=== PATIENT | female | born 1975 | race Caucasian/White ===

== ENCOUNTER 2016-07-22 12:01 | Emergency (ER) | payer OTHER ==
[2016-07-22 12:29] VITALS: BP 117/75; PULSE 61; TEMP 98.3; BMI 25.9
[2016-07-22] MEDS ORDERED: KETOROLAC TROMETHAMINE 30 MG/1 ML VIAL IM ONE (14:07)
[2016-07-22] MEDS ORDERED: CYCLOBENZAPRINE HCL 10 MG TABLET (FP) PO ONE (14:07)
--- NOTE | 2016-07-22 14:08 | PDOC ---
History of Present Illness - General Chief Complaint: Back Pain Stated Complaint: BACK PAIN, LT KNEE PAIN Time Seen by Provider: 07/22/16 13:56 History Source: Patient Exam Limitations: No Limitations - History of Present Illness Initial Comments: 07/22/16 14:07 CHIEF COMPLAINT: Fall HISTORY OF PRESENT ILLNESS: This is an otherwise healthy 41 year old female who presents for evaluation of left knee pain and right neck/shoulder pain following a fall down 5 steps while at work 5 days ago. She fell forward onto her hands and knees. Since then she has been able to bear weight and to ambulate , but she has persistent pain. She has been taking Motrin with partial relief. Vital signs on arrival are unremarkable. REVIEW OF SYSTEMS: GENERAL/CONSTITUTIONAL: No fever or chills. No weakness. No weight change. HEAD, EYES, EARS, NOSE AND THROAT: No change in vision. No ear pain or discharge. No sore throat. CARDIOVASCULAR: No chest pain or palpitations. RESPIRATORY: No cough, wheezing, or shortness of breath. GASTROINTESTINAL: No nausea, vomiting, diarrhea or constipation. GENITOURINARY: No dysuria, frequency, or change in urination. MUSCULOSKELETAL: Pain at right side of neck radiating to right shoulder. Pain in palms of both hands. Left knee pain. SKIN: No rash or easy bruising. NEUROLOGIC: No headache, vertigo, loss of consciousness, or loss of sensation. HEMATOLOGIC/LYMPHATIC: No anemia, easy bleeding, or history of blood clots. ALLERGIC/IMMUNOLOGIC: No hives or skin allergy. No latex allergy. PHYSICAL EXAM: GENERAL: The patient is awake, alert, and fully oriented, in no acute distress. HEAD: Normal with no signs of trauma. ENT: Pupils equal, round and reactive to light, extraocular movements intact, sclera anicteric, conjunctiva clear. Neck supple. LUNGS: Clear to auscultation bilaterally. Normal excursion. No respiratory distress or use of accessory muscles. CV: RRR, S1/S2, no MRG. Cap refill < 2 sec. ABDOMEN: Soft, non-distended, non-tender. EXTREMITIES: Normal range of motion of wrists, elbows, and shoulders bilaterally. Pain on extension of left knee; able to flex to 90 degrees. No ligament laxity. NEUROLOGICAL: Normal speech, normal gait. CN II-XII grossly intact. No midline cervical vertebral tenderness. PSYCH: Normal mood, normal affect. SKIN: Warm, dry, normal turgor, no rashes or lesions noted. Past History - Past Medical History Allergies/Adverse Reactions: Allergies Allergy/AdvReac Type Severity Reaction Status Date / Time Penicillins Allergy Itching Verified 07/22/16 12:26 Home Medications: Ambulatory Orders Omeprazole [Prilosec] 20 mg PO DAILY 09/09/13 Ferrous Sulfate [Feosol] 325 mg PO BID #60 ud 09/13/13 Levofloxacin [Levaquin -] 500 mg PO DAILY@0600 #5 tablet 09/13/13 Cyclobenzaprine HCl [Flexeril 10 mg] 10 mg PO HS PRN #10 tablet 07/22/16 Naproxen [Naprosyn -] 500 mg PO BID #14 tablet 07/22/16 Anemia: No Asthma: No Cancer: No Cardiac Disorders: No CVA: No COPD: No CHF: No Dementia: No Diabetes: No GI Disorders: No Disorders: No HTN: No Hypercholesterolemia: No Liver Disease: No Seizures: No Thyroid Disease: No Other medical history: DENIES. - Psycho/Social/Smoking Cessation Hx Anxiety: No Suicidal Ideation: No Smoking History: Never smoked Have you smoked in the past 12 months: No Hx Alcohol Use: No Drug/Substance Use Hx: No Substance Use Type: None Hx Substance Use Treatment: No *Physical Exam - Vital Signs Last Vital Signs Temp Pulse Resp BP Pulse Ox 98.3 F 61 19 117/75 97 07/22/16 12:26 07/22/16 12:26 07/22/16 12:26 07/22/16 12:26 07/22/16 12:26 ED Treatment Course - RADIOLOGY Radiology Studies Ordered: Category Date Time Status KNEE 3 POS-LEFT [RAD] Stat Radiology 07/22/16 14:07 Ordered Medical Decision Making - Medical Decision Making 07/22/16 15:32 A/P: 41 year old female with multiple injuries following a fall 5 days ago. 1. Toradol and Flexeril given with good relief of pain 2. Knee xray: no acute pathology 3. Followup instructions and return precautions reviewed *DC/Admit/Observation/Transfer Diagnosis at time of Disposition: Neck pain Fall Qualifiers: Encounter type: initial encounter Qualified Code(s): W19.XXXA - Unspecified fall, initial encounter Knee pain, left Qualifiers: Chronicity: acute Qualified Code(s): M25.562 - Pain in left knee - Discharge Dispostion Admit: No - Prescriptions Prescriptions: Cyclobenzaprine HCl [Flexeril 10 mg] 10 mg PO HS PRN #10 tablet PRN Reason: Pain Naproxen [Naprosyn -] 500 mg PO BID #14 tablet - Referrals Referrals: Casandra Retana MD [Primary Care Provider] - Call tomorrow - Patient Instructions Printed Discharge Instructions: DI for Neck Pain, DI for Knee Pain Additional Instructions: -You were seen today for neck/shoulder pain and knee pain following a fall. -Your knee xray is normal. -Please wrap the knee using the TARA wrap provided and rest with your leg elevated. -Take Naproxen and Flexeril as prescribed for pain and apply ice to the injured areas. -Return here for any new or concerning symptoms - Post Discharge Activity Work/School Note: Back to Work
[2016-07-22] MEDS ORDERED: KETOROLAC TROMETHAMINE 30 MG/1 ML VIAL ONE (14:10)
[2016-07-22] MEDS ORDERED: CYCLOBENZAPRINE HCL 10 MG TABLET (FP) ONE (14:10)
== END 2016-07-22 15:21 | disposition home or self-care (01) ==
LOC: JERFT 12:01
PROC: 3E0233Z Introduction of Anti-inflammatory into Muscle, Percutaneous Approach (ICD-10-PCS; principal; 2016-07-22)
DX: M54.2 Cervicalgia (principal); W10.8XXA Fall (on) (from) other stairs and steps, initial encounter; Y93.89 Activity, other specified; Y92.69 Other specified industrial and construction area as the place of occurrence of the external cause; Y99.0 Civilian activity done for income or pay
CPT/HCPCS: 73562-TC-LT; 99281-25

== ENCOUNTER 2018-03-13 12:33 | Emergency (ER) | payer OTHER ==
[2018-03-13 12:56] VITALS: BP 120/77; PULSE 97; TEMP 99.3; BMI 27.8
[2018-03-13] MEDS ORDERED: ACETAMINOPHEN 325 MG TABLET (FP) PO ONE (13:48)
[2018-03-13] MEDS ORDERED: ACETAMINOPHEN 325 MG TABLET (FP) ONE (13:51)
--- NOTE | 2018-03-13 14:07 | PDOC ---
History of Present Illness - General Chief Complaint: Cold Symptoms Stated Complaint: COUGH,FEVER Time Seen by Provider: 03/13/18 13:38 History Source: Patient Exam Limitations: No Limitations - History of Present Illness Initial Comments: 03/13/18 13:59 43 yr female with cough sore throat for 7 days pt just finished a 5 day Zpack for URI given by her PMD. Pt states she still has cough and sore throat took tylenol last night. no fever no vomiting or SOB non smoker. two signs with same symptoms Past History - Past Medical History Allergies/Adverse Reactions: Allergies Allergy/AdvReac Type Severity Reaction Status Date / Time Penicillins Allergy Itching Verified 03/13/18 12:52 Home Medications: Ambulatory Orders Clindamycin [Cleocin -] 300 mg PO TID #30 capsule 03/13/18 Anemia: No Asthma: No Cancer: No Cardiac Disorders: No CVA: No COPD: No CHF: No Dementia: No Diabetes: No GI Disorders: No Disorders: No HTN: No Hypercholesterolemia: No Liver Disease: No Seizures: No Thyroid Disease: No - Suicide/Smoking/Psychosocial Hx Smoking History: Never smoked Have you smoked in the past 12 months: No Information on smoking cessation initiated: No Hx Alcohol Use: No Drug/Substance Use Hx: No Substance Use Type: None Hx Substance Use Treatment: No Respiratory Specific PMHX - Complaint Specific PMHX Angina: No Bronchitis: Yes Pneumonia: No Pulmonary Embolus: No TB (Tuberculosis): No Review of Systems - Review of Systems Able to Perform ROS?: Yes Is the patient limited Slovak proficient: No Constitutional: No: Symptoms Reported HEENTM: Yes: Symptoms Reported, Throat Pain Respiratory: Yes: Cough *Physical Exam - Vital Signs Last Vital Signs Temp Pulse Resp BP Pulse Ox 99.3 F 97 H 16 120/77 100 03/13/18 12:35 03/13/18 12:35 03/13/18 12:35 03/13/18 12:35 03/13/18 12:35 - Physical Exam General Appearance: Yes: Nourished, Appropriately Dressed HEENT: positive: EOMI, GLENNA, TMs Normal, Pharyngeal Erythema. negative: Tonsillar Exudate, Tonsillar Erythema Neck: positive: Supple. negative: Lymphadenopathy (R), Lymphadenopathy (L) Respiratory/Chest: positive: Lungs Clear. negative: Rhonchi (dry cough noted ) , Wheezing Cardiovascular: positive: Regular Rhythm, Regular Rate Gastrointestinal/Abdominal: positive: Normal Bowel Sounds, Soft Musculoskeletal: positive: Normal Inspection Extremity: positive: Normal Capillary Refill, Normal Inspection, Normal Range of Motion Integumentary: positive: Normal Color, Dry, Warm Neurologic: positive: Fully Oriented, Alert, Normal Mood/Affect, Normal Response , Motor Strength 5/5 Medical Decision Making - Medical Decision Making 03/13/18 14:01 cc: cough sore throat no fever sons with same symptoms will check for strep most likely viral will continue supportive care at home. *DC/Admit/Observation/Transfer Diagnosis at time of Disposition: Strep pharyngitis - Discharge Dispostion Disposition: HOME Condition at time of disposition: Good - Prescriptions Prescriptions: Clindamycin [Cleocin -] 300 mg PO TID #30 capsule - Referrals Referrals: Casandra Retana MD [Primary Care Provider] - - Patient Instructions Printed Discharge Instructions: DI for Strep Throat Additional Instructions: tea with honey and lemon drink at least 2 liters of water a day apply Vicks Vapor rub to chest at bedtime and throat cool mist humidifer in the bedroom take Mucinex as directed (over the counter) - Post Discharge Activity
== END 2018-03-13 14:44 | disposition home or self-care (01) ==
LOC: JERFT 12:33
DX: J02.0 Streptococcal pharyngitis (principal); B95.5 Unspecified streptococcus as the cause of diseases classified elsewhere
CPT/HCPCS: 99281-25

== ENCOUNTER 2018-05-05 08:39 | Emergency (ER) | payer OTHER ==
[2018-05-05 08:45] VITALS: TEMP 98.6; BMI 25.6
--- NOTE | 2018-05-05 09:24 | PDOC ---
History of Present Illness - General Chief Complaint: Headache Stated Complaint: HEADACHE Time Seen by Provider: 05/05/18 08:59 History Source: Patient Exam Limitations: No Limitations - History of Present Illness Initial Comments: 05/05/18 09:23 CHIEF COMPLAINT: Headache, chest pain HISTORY OF PRESENT ILLNESS: This is an otherwise healthy 43-year-old female who presents for evaluation of headache and chest pain. The patient reports that she developed generalized headache yesterday at around 11 AM. This was initially relieved with ibuprofen, but returned at 4 PM and has not been responsive to ibuprofen since. She reports that the pain radiates down the left side of her neck. Today, she also developed chest pain/pressure, worse with deep breathing, and shortness of breath. She feels that her left arm is weak. She denies numbness, change in speech, blurred vision, and difficulty walking. She has never had similar symptoms. The patient does report that she is under increased stress and thinks that symptoms may be secondary to this. Vital signs on arrival are unremarkable. Travel: [place] 1 month ago Smoking: None Alcohol: None Drugs: None PCP: Dr. Casandra Retana REVIEW OF SYSTEMS: GENERAL/CONSTITUTIONAL: No fever or chills. No weakness. No weight change. HEAD, EYES, EARS, NOSE AND THROAT: No change in vision. No ear pain or discharge. No sore throat. CARDIOVASCULAR: Chest pressure radiating down left arm. Subjective left arm weakness. RESPIRATORY: No cough, wheezing, or shortness of breath. GASTROINTESTINAL: No nausea, vomiting, diarrhea or constipation. GENITOURINARY: No dysuria, frequency, or change in urination. MUSCULOSKELETAL: Left-sided neck pain. No stiffness. No joint or muscle swelling or pain. SKIN: No rash or easy bruising. NEUROLOGIC: No headache, vertigo, loss of consciousness, or loss of sensation. PSYCHIATRIC: Anxiety/despair secondary to 18-year-old's son recent disclosure of bisexuality. ENDOCRINE: No increased thirst. No abnormal weight change. HEMATOLOGIC/LYMPHATIC: No anemia, easy bleeding, or history of blood clots. ALLERGIC/IMMUNOLOGIC: No hives or skin allergy. No latex allergy. PHYSICAL EXAM: GENERAL: The patient is awake, alert, and fully oriented, in no acute distress. HEAD: Normal with no signs of trauma. ENT: Pupils equal, round and reactive to light, extraocular movements intact, sclera anicteric, conjunctiva clear. Neck supple. LUNGS: Clear to auscultation bilaterally. Normal excursion. No respiratory distress or use of accessory muscles. CV: RRR, S1/S2, no MRG. Cap refill < 2 sec. Chest pain reproducible with light palpation. ABDOMEN: Soft, non-distended, non-tender. EXTREMITIES: Normal range of motion, no edema. NEUROLOGICAL: Normal speech, normal gait. CN II-XII grossly intact. NIHSS=0. No neck stiffness. PSYCH: Tearful, anxious. SKIN: Warm, dry, normal turgor, no rashes or lesions noted. Past History - Past Medical History Allergies/Adverse Reactions: Allergies Allergy/AdvReac Type Severity Reaction Status Date / Time Penicillins Allergy Itching Verified 03/13/18 12:52 Home Medications: Ambulatory Orders NK [No Known Home Medication] 05/05/18 Anemia: No Asthma: No Cancer: No Cardiac Disorders: No CVA: No COPD: No CHF: No Dementia: No Diabetes: No GI Disorders: No Disorders: No HTN: No Hypercholesterolemia: No Liver Disease: No Seizures: No Thyroid Disease: No - Immunization History Immunization Up to Date: No - Suicide/Smoking/Psychosocial Hx Smoking History: Never smoked Have you smoked in the past 12 months: No Information on smoking cessation initiated: No Hx Alcohol Use: No Drug/Substance Use Hx: No Substance Use Type: None Hx Substance Use Treatment: No *Physical Exam - Vital Signs Last Vital Signs Temp Pulse Resp BP Pulse Ox 98.6 F 68 16 117/71 99 05/05/18 08:42 05/05/18 08:42 05/05/18 08:42 05/05/18 08:42 05/05/18 08:42 Moderate Sedation - Procedure Monitoring Vital Signs: Procedure Monitoring Vital Signs Temperature 98.6 F 05/05/18 08:42 Pulse Rate 68 05/05/18 08:42 Respiratory Rate 16 05/05/18 08:42 Blood Pressure 117/71 05/05/18 08:42 O2 Sat by Pulse Oximetry (%) 99 05/05/18 08:42 Heart Score/ECG Review - ECG Intrepretation Comment:: 05/05/18 14:30 NSR with occasional PVCs and incomplete RBBB ED Treatment Course - LABORATORY CBC & Chemistry Diagram: 05/05/18 09:30 05/05/18 09:30 Medical Decision Making - Medical Decision Making 05/05/18 10:39 A/P: 43-year-old female with multiple symptoms including headache/neck pain, chest pressure, left arm weakness, and anxiety. Non-focal neurologic exam with reproducible chest pain. -EKG -CXR -Labs including CBC, CMP, PT/INR -CT brain -Reassess 05/05/18 11:14 Labs unremarkable 05/05/18 14:22 CXR: No acute process CT: No acute intracranial process Second troponin negative Chest pain, subjective arm weakness, and shortness of breath resolved. Still with some mild headache, will add Tylenol. Findings reviewed with patient. Will follow up with PCP. Return precautions reviewed. *DC/Admit/Observation/Transfer Diagnosis at time of Disposition: Chest pain Qualifiers: Chest pain type: unspecified Qualified Code(s): R07.9 - Chest pain, unspecified Headache Qualifiers: Headache type: unspecified Headache chronicity pattern: acute headache Intractability: not intractable Qualified Code(s): R51 - Headache - Discharge Dispostion Disposition: HOME Condition at time of disposition: Improved Decision to Admit order: No - Referrals Referrals: Casandra Retana MD [Non Staff, Medical] - - Patient Instructions Printed Discharge Instructions: DI for Headache, DI for Atypical Chest Pain Additional Instructions: -Rest and stay well-hydrated -Take Tylenol or ibuprofen as needed for headache -Follow up with your primary care doctor this week -Return for recurrent chest pain, shortness of breath, worsening headache, or any other concerning symptoms - Post Discharge Activity
[2018-05-05] MEDS ORDERED: KETOROLAC TROMETHAMINE 30 MG/1 ML VIAL IVPUSH ONE (09:40)
[2018-05-05 09:47] LABS: BASO % 1.2 % (0-2.0); EOS % 14.9 % (0-4.5); HEMATOCRIT 39.3 % (32.4-45.2); HEMOGLOBIN 12.8 GM/dL (10.7-15.3); LYMPH % 27.6 % (8-40); MCH 23.9 pg (25.7-33.7); MCHC 32.5 g/dl (32.0-36.0); MEAN CELL VOLUME 73.6 fl (80-96); MEAN PLT VOLUME 10.7 fl (7.5-11.1); MONO % 6.9 % (3.8-10.2); NEUT % 49.4 % (42.8-82.8); PLATELET COUNT 163 K/MM3 (134-434); RBC 5.34 M/mm3 (3.60-5.2); RDW 14.1 % (11.6-15.6); WHITE BLOOD COUNT 5.3 K/mm3 (4.0-10.0)
[2018-05-05] MEDS ORDERED: KETOROLAC TROMETHAMINE 30 MG/1 ML VIAL ONE (10:00)
[2018-05-05 10:03] LABS: INR 1.07 (0.83-1.09); PROTHROMBIN TIME (PATIENT) 12.6 SEC (9.7-13.0)
--- NOTE | 2018-05-05 10:05 | PDOC ---
*Physical Exam - Vital Signs Last Vital Signs Temp Pulse Resp BP Pulse Ox 98.6 F 68 16 117/71 99 05/05/18 08:42 05/05/18 08:42 05/05/18 08:42 05/05/18 08:42 05/05/18 08:42 ED Treatment Course - LABORATORY CBC & Chemistry Diagram: 05/05/18 09:30 05/05/18 09:30 - ADDITIONAL ORDERS Additional order review: Laboratory Results 05/05/18 09:30 PT with INR 12.60 INR 1.07 05/05/18 09:30 RBC 5.34 H MCV 73.6 L MCHC 32.5 RDW 14.1 D MPV 10.7 Neutrophils % 49.4 Lymphocytes % 27.6 Monocytes % 6.9 Eosinophils % 14.9 H Basophils % 1.2 Medical Decision Making - Medical Decision Making 05/05/18 10:05 43 yo F presenting with a complaint of headache, minimally improved with OTC meds No nausea, vomiting, photophobia, phonophobia Pt has reproducible chest wall tenderness Labs pending EKG - No ischemic changes Pt seen by Midlevel Provider under my direct supervision Pt interviewed and examined Ancillary studies reviewed I agree with plan as outlined by Midlevel Provider 05/05/18 10:57 *DC/Admit/Observation/Transfer Diagnosis at time of Disposition: Chest pain, Headache - Discharge Dispostion Disposition: HOME Condition at time of disposition: Improved - Referrals Referrals: Casandra Retana MD [Non Staff, Medical] - - Patient Instructions Printed Discharge Instructions: DI for Atypical Chest Pain, DI for Headache Additional Instructions: -Rest and stay well-hydrated -Take Tylenol or ibuprofen as needed for headache -Follow up with your primary care doctor this week -Return for recurrent chest pain, shortness of breath, worsening headache, or any other concerning symptoms - Post Discharge Activity
[2018-05-05 10:11] LABS: ALBUMIN 4.2 g/dl (3.4-5.0); ALK PHOS 56 U/L (45-117); ANION GAP 6 MMOL/L (8-16); BILIRUBIN,TOTAL 0.5 mg/dL (0.2-1); BLOOD UREA NITROGEN 10 mg/dL (7-18); CALCIUM 8.8 mg/dL (8.5-10.1); CHLORIDE 107 mmol/L (98-107); CO2 25 mmol/L (21-32); CREATININE 0.5 mg/dL (0.55-1.3); GLUCOSE,RANDOM 91 mg/dL (74-106); SGOT/AST 7 U/L (15-37); SGPT/ALT 9 U/L (13-61); SODIUM 139 mmol/L (136-145); TOT PROT 8.3 g/dl (6.4-8.2)
[2018-05-05] MEDS ORDERED: ACETAMINOPHEN 325 MG TABLET (FP) PO ONE (14:22)
[2018-05-05] MEDS ORDERED: ACETAMINOPHEN 325 MG TABLET (FP) ONE (14:39)
[2018-05-05 15:16] VITALS: BP 103/69; PULSE 61
--- NOTE | 2018-05-06 11:58 | EKG ---
Test Reason : Blood Pressure : / mmHG Vent. Rate : 069 BPM Atrial Rate : 069 BPM P-R Int : 158 ms QRS Dur : 098 ms QT Int : 426 ms P-R-T Axes : 028 011 053 degrees QTc Int : 456 ms SINUS RHYTHM WITH SINUS ARRHYTHMIA WITH OCCASIONAL PREMATURE VENTRICULAR COMPLEXES INCOMPLETE RIGHT BUNDLE BRANCH BLOCK BORDERLINE ECG WHEN COMPARED WITH ECG OF 09-SEP-2013 18:58, PREMATURE VENTRICULAR COMPLEXES ARE NOW PRESENT Confirmed by SNOW GARCIA, DENICE ([id number]) on 05/06/2018 11:58:17 AM Referred By: Confirmed By:DENICE ADAMSON MD
== END 2018-05-05 15:16 | disposition home or self-care (01) ==
LOC: JER 08:39
PROC: 3E0333Z Introduction of Anti-inflammatory into Peripheral Vein, Percutaneous Approach (ICD-10-PCS; principal; 2018-05-05)
DX: R07.9 Chest pain, unspecified (principal); R51 Headache
CPT/HCPCS: 36415; 70450-TC; 71046-TC-FY; 80053; 84484; 85025; 85610; 93005; 93010; 96374; 99282-25

== ENCOUNTER 2018-09-21 12:39 | Inpatient (IN) | payer OTHER ==
[2018-09-21 12:50] VITALS: BMI 26.3
[2018-09-21] MEDS ORDERED: SODIUM CHLORIDE 0.9% 500 ML INFUS.BAG IV ONE (14:43)
[2018-09-21] MEDS ORDERED: FAMOTIDINE 20 MG/50 ML IVPB 20 MG/50 ML MG IVPB ONE ×2 (14:43→15:17)
[2018-09-21] MEDS ORDERED: MAG HYDROX/AL HYDROX/SIMETH 30 ML UNIT-DOSE CUP PO ONE (14:43)
--- NOTE | 2018-09-21 14:51 | PDOC ---
History of Present Illness - General Chief Complaint: Pain, Acute Stated Complaint: DIZZY\NAUSEA\LIGHTHEADED Time Seen by Provider: 09/21/18 14:26 - History of Present Illness Initial Comments: 09/21/18 14:51 The patient is an 43 year old female with no reported PMH who presents to the ED c/o 5 day h/o abdominal pain. Pain is twisting, constant (though varying in severity) and intermittently associated with nausea and vomiting. Pain sometimes radiates up her chest and is associated with sore throat. Also notes yesterday she had urgency to defecate with small amount of stool. Last BM was this morning prior to presentation and was normal. Limitedly tolerating PO intake. States she was evaluated by her PMD last week for her pain and give Zofran and Dicyclomine which gave her some relief. No previous h/o endoscopy. H/o of colonoscopy 5-6 years previous which she believes was normal. Allergy: Penicillin Surgical: hysterectomy 09/21/18 17:28 Past History - Past Medical History Allergies/Adverse Reactions: Allergies Allergy/AdvReac Type Severity Reaction Status Date / Time Penicillins Allergy Itching Verified 03/13/18 12:52 Home Medications: Ambulatory Orders NK [No Known Home Medication] 05/05/18 Anemia: No Asthma: No Cancer: No Cardiac Disorders: No CVA: No COPD: No CHF: No Dementia: No Diabetes: No GI Disorders: No Disorders: Yes (HYSTERECTOMY X3 YEARS) HTN: No Hypercholesterolemia: No Liver Disease: No Seizures: No Thyroid Disease: No - Immunization History Immunization Up to Date: No - Suicide/Smoking/Psychosocial Hx Smoking History: Never smoked Have you smoked in the past 12 months: No Information on smoking cessation initiated: No Hx Alcohol Use: No Drug/Substance Use Hx: No Substance Use Type: None Hx Substance Use Treatment: No Review of Systems - Review of Systems Constitutional: No: Chills, Fever Respiratory: No: Cough, Shortness of Breath, Wheezing Cardiac (ROS): No: Chest Pain, Lightheadedness, Palpitations ABD/GI: Yes: Constipated, Diarrhea, Abdominal cramping. No: Nausea, Vomiting : No: Burning, Dysuria, Hematuria *Physical Exam - Vital Signs Last Vital Signs Temp Pulse Resp BP Pulse Ox 99.6 F 68 18 110/52 L 100 09/21/18 12:46 09/21/18 12:46 09/21/18 12:46 09/21/18 12:46 09/21/18 12:46 - Physical Exam Comments: Triage VS reviewed Awake, alert, non-toxic appearing Abdomen: (+) bowel sounds, LUQ >LLQ TTP, ? LLQ guarding CV: S1,S2 no M/R/G Respiratory: CLTA B/L no wheeze/crackle Extremity: 2+ DP pulses, no edema Neuro: A&O x3, CN II-XII intact ED Treatment Course - LABORATORY CBC & Chemistry Diagram: 09/22/18 13:20 09/21/18 15:02 Medical Decision Making - Medical Decision Making 09/21/18 14:51 43 year old female with abdominal pain, nausea w/o vomiting presents with a two week h/o worsening abdominal pain. VS unremarkable. Attending Belly exam shows L sided TTP, LLQ > LUQ with possible peritoneal (guarding) sign. DDx include gastritis, gastroenteritis, colitis, pyelonephritis, cystitis, also consider ovarian torsion, ovarian cyst. PLAN: CTAP, basic labs, lipase, IV hydration. Reassess. 09/21/18 16:59 Hb 6.1 - on repeat exam patient notes h/o anemia 2-3 years previous 05/22 to fibroid; s/p hysterectomy. CTAP pending 09/21/18 17:06 Bimanual exam showed non tender adnexa, unlikely ovarian etiology 09/21/18 18:54 Call received from [facility] - [facility] delayed ED Course: CTAP showed splenomegaly, enlarged lymph nodes and subpleural opacity; no spenlomegaly noted in abdomen on CTA when patient being evaluated Source of Anemia unknown - consider malignancy, leukemia, MPD. Patient admitted to hospitalist for further evaluation *DC/Admit/Observation/Transfer Diagnosis at time of Disposition: Anemia Qualifiers: Anemia type: other cause Other causes of anemia: other cause, not classified Qualified Code(s): D64.89 - Other specified anemias - Discharge Dispostion Condition at time of disposition: Stable - Referrals - Patient Instructions - Post Discharge Activity
[2018-09-21 15:10] LABS: HCG,QUALITATIVE URINE Negative
[2018-09-21] MEDS ORDERED: MAG HYDROX/AL HYDROX/SIMETH 30 ML UNIT-DOSE CUP ONE (15:17)
[2018-09-21 15:36] LABS: EPI CELLS 0.6 /HPF (0-5/HPF); HYALINE CASTS 2 /lpf (0-8); PH,URINE 6.5 (5.0-8.0); URINE APPEARANCE CLEAR; URINE BACTERIA 7.6 /hpf (NEGATIVE); URINE BILIRUBIN NEGATIVE (NEGATIVE); URINE COLOR YELLOW; URINE GLUCOSE (UA) NEGATIVE (NEGATIVE); URINE KETONE NEGATIVE (NEGATIVE); URINE LEUK ESTERASE TRACE (NEGATIVE); URINE NITRITE NEGATIVE (NEGATIVE); URINE PROTEIN NEGATIVE (NEGATIVE); URINE RBC 1 /hpf (0-4); URINE WBC 2 /hpf (0-5)
[2018-09-21 15:49] LABS: BILIRUBIN,TOTAL 0.5 mg/dL (0.2-1); CALCIUM 8.5 mg/dL (8.5-10.1); CREATININE 0.5 mg/dL (0.55-1.3); POTASSIUM 3.7 mmol/L (3.5-5.1); TOT PROT 7.5 g/dl (6.4-8.2)
--- NOTE | 2018-09-21 15:49 | PDOC ---
Documentation entered by Nicole Henderson SCRIBE, acting as scribe for Adithya Jacobsen MD. Adithya Jacobsen MD: This documentation has been prepared by the Beatriz graves Adrianna, SCRIBE, under my direction and personally reviewed by me in its entirety. I confirm that the documentation accurately reflects all work, treatment, procedures, and medical decision making performed by me. Attending Attestation - Resident Resident Name: Cary Umana - ED Attending Attestation I have performed the following: I have examined & evaluated the patient, The case was reviewed & discussed with the resident, I agree w/resident's findings & plan - HPI HPI: 09/21/18 15:45 43-year-old female with history of hysterectomy presents with progressive abdominal pain for about one week, associated with nausea and anorexia, now with increasing spasmodic like pain lasting 1-2 minutes with baseline constant soreness in her abdomen, mostly in the epigastric and left upper quadrant region. No fevers or chills, no urinary complaints, some urgency with defecation but no bloody bowel movements. Had colonoscopy a few years ago that was reportedly normal, - Physicial Exam PE: 09/21/18 15:47 Afebrile Well-appearing seated in stretcher, no jaundice or pallor Moist mucosa Heart is regular with occasional premature beats Lungs are clear Abdomen is soft/nondistended. Tender with guarding in the left abdomen predominantly in the left lower quadrant, positive referred pain on right-sided palpation and referred rebound. - Medical Decision Making 09/21/18 15:47 43-year-old female with 1 week of progressive abdominal pain with nausea and anorexia, left lower quadrant tenderness with local peritoneal findings suggestive of acute infectious/inflammatory process, most likely GI related such as colitis/diverticulitis, rule out [employer] etiology or UTI. Labs, urinalysis Pain control, IV fluids CAT scan of the abdomen and pelvis Reassess Heart Score/ECG Review #1 ECG reviewed & interpreted by me at: 15:02 General ECG Interpretation: Sinus Rhythm (with APCs noted), Normal Rate (84), Normal Intervals (qtc 470, qrs 94), No acute ischemic changes
[2018-09-21 16:05] LABS: BASO % 2.3 % (0-2.0); EOS % 6.4 % (0-4.5); HEMATOCRIT 21.9 % (32.4-45.2); LYMPH % 27.6 % (8-40); MEAN CELL VOLUME 55.8 fl (80-96); MEAN PLT VOLUME 9.9 fl (7.5-11.1); MONO % 12.7 % (3.8-10.2); PLATELET COUNT 216 K/MM3 (134-434); RBC 3.93 M/mm3 (3.60-5.2); RDW 20.1 % (11.6-15.6); WHITE BLOOD COUNT 5.4 K/mm3 (4.0-10.0)
[2018-09-21 16:07] LABS: MCH 15.6 pg (25.7-33.7)
[2018-09-21 16:08] LABS: HEMOGLOBIN 6.1 GM/dL (10.7-15.3)
[2018-09-21 17:58] LABS: ANISOCYTOSIS 2+; PLATELET ESTIMATE ADEQUATE
--- NOTE | 2018-09-22 00:51 | PN ---
Teaching Attending Note Name of Resident: Debbie Renteria ATTENDING PHYSICIAN STATEMENT I saw and evaluated the patient. I reviewed the resident's note and discussed the case with the resident. I agree with the resident's findings and plan as documented. SUBJECTIVE: Patient is an 43 year old woman with PMH of menometrorrhagia, anemia (noted 5 years ago), hysterectomy (4 years ago) and penicillin allergy who presents to the ER complaining of increasing abdominal pain for 5 days. Pain is twisting, constant (though varying in severity) and intermittently associated with nausea and vomiting. Pain sometimes radiates up her chest and is associated with sore throat. Also notes yesterday she had urgency to defecate with small amount of stool and has had blood in her stool. Last BM was this morning prior to presentation and was normal. Barely tolerating oral intake. States she was evaluated by her PCP last week for her pain and was give Zofran and Dicyclomine which gave her some relief. Says she recently lost weight, because she has been trying to loose weight. No prior EGD but had a colonoscopy 5-6 years ago which was normal. Denies fever, chills, headache, dysuria, urgency, frequency or dizziness. OBJECTIVE: Alert Vital Signs Period Temp Pulse Resp BP Sys/Bellamy Pulse Ox Last 24 Hr 99.3 F-99.6 F 68-88 16-20 92-112/50-69 98-100 HEENT: No Jaundice, eye redness or discharge, PERRLA, EOMI. Normocephalic, atraumatic. External ears are normal and hearing is grossly intact. No nasal discharge. Neck: Supple, nontender. No palpable adenopathy or thyromegaly. No JVD Chest: Good effort. Clear to auscultation and percussion. Heart: Regular. No S3 or rub; 2/6 JAHAIRA Abdomen: Not distended, soft, diffuse tenderness - most severe in LLQ; no HSM. No rebound or guarding. Normal bowel sounds. Ext: Peripheral pulses intact. No leg edema. Rectal exam revealed some external hemorrhoids. Skin: Warm and dry. No petechiae, rash or ecchymosis. Neuro: Alert. Oriented x3. CN 2-12 grossly intact. Sensation grossly intact in all four extremities and DTR are symmetric. Psych: Appropriate mood and affect. Good insight. Home Medications Medication Instructions Recorded NK [No Known Home Medication] 05/05/18 Abnormal Lab Results 09/21/18 09/21/18 09/21/18 15:02 15:02 16:33 Hgb 6.1 L* Hct 21.9 L D MCV 55.8 L MCH 15.6 L D MCHC 28.0 L RDW 20.1 H Monocytes % 12.7 H D Eosinophils % 6.4 H Basophils % 2.3 H Nucleated RBC % 1 H BUN 6 L Creatinine 0.5 L AST 14 L ALT 10 L Alkaline Phosphatase 40 L Crossmatch See Detail ASSESSMENT AND PLAN: 1. Abdominal Pain/Severe low MCV anemia - Cause of abdominal pain or anemia is unclear. CT abdomen showed multiple enlarged intraabdominal lymphnodes, subpleural opacity and splenomegaly. EKG showed NSR with multiple PACs. Will do serial stool guaiacs, reticulocyte count, iron studies and Hb electrophoresis. Continue protonix. Consult [facility]/Onc and GI. Being transfused PRBC by the ER staff. Going forward would benefit from IV iron therapy once iron deficiency is confirmed. 3. DVT prophylaxis - Lovenox 40 mg SQ q 24 hours. 3. Advance directives - Full code
--- NOTE | 2018-09-22 01:15 | PDOC ---
ED Treatment Course - LABORATORY CBC & Chemistry Diagram: 09/21/18 15:02 09/21/18 15:02 - ADDITIONAL ORDERS Additional order review: Laboratory Results 09/21/18 09/21/18 09/21/18 16:33 15:02 15:02 Sodium Potassium Chloride Carbon Dioxide Anion Gap BUN Creatinine Est GFR (CKD-EPI)AfAm Est GFR (CKD-EPI)NonAf Random Glucose Calcium Total Bilirubin AST ALT Alkaline Phosphatase Creatine Kinase 32 Troponin I < 0.02 Total Protein Albumin Lipase Serum , Qual Negative Urine Color Urine Appearance Urine pH Ur Specific [place] Urine Protein Urine Glucose (UA) Urine Ketones Urine Blood Urine Nitrite Urine Bilirubin Urine Urobilinogen Ur Leukocyte Esterase Urine WBC (Auto) Urine RBC (Auto) Urine Casts (Auto) U Epithel Cells (Auto) Urine Bacteria (Auto) Urine HCG, Qual Blood Type A NEGATIVE Antibody Screen Negative Antibody Identification No Result Required. Antigen Identification No Result Required. Crossmatch See Detail 09/21/18 09/21/18 15:02 14:52 Sodium 137 Potassium 3.7 Chloride 103 Carbon Dioxide 24 Anion Gap 10 BUN 6 L Creatinine 0.5 L Est GFR (CKD-EPI)AfAm 135.47 Est GFR (CKD-EPI)NonAf 116.89 Random Glucose 102 Calcium 8.5 Total Bilirubin 0.5 AST 14 L ALT 10 L Alkaline Phosphatase 40 L Creatine Kinase Troponin I Total Protein 7.5 Albumin 4.0 Lipase 158 Serum , Qual Urine Color Yellow Urine Appearance Clear Urine pH 6.5 Ur Specific [place] 1.014 Urine Protein Negative Urine Glucose (UA) Negative Urine Ketones Negative Urine Blood Negative Urine Nitrite Negative Urine Bilirubin Negative Urine Urobilinogen 1.0 Ur Leukocyte Esterase Trace Urine WBC (Auto) 2 Urine RBC (Auto) 1 Urine Casts (Auto) 2 U Epithel Cells (Auto) 0.6 Urine Bacteria (Auto) 7.6 Urine HCG, Qual Negative Blood Type Antibody Screen Antibody Identification Antigen Identification Crossmatch 09/21/18 15:02 RBC 3.93 MCV 55.8 L MCHC 28.0 L RDW 20.1 H MPV 9.9 Neutrophils % 51.0 Lymphocytes % 27.6 Monocytes % 12.7 H D Eosinophils % 6.4 H Basophils % 2.3 H - Medications Given in the ED: ED Medications Discontinued Medications Generic Name Dose Route Start Last Admin Trade Name Freq PRN Reason Stop Dose Admin Al Hydroxide/Mg Hydroxide 30 ml 09/21/18 14:43 09/21/18 15:18 Mylanta Oral Suspension - PO 09/21/18 14:44 30 ml ONCE ONE Administration Famotidine/Sodium Chloride 20 mg in 50 mls @ 100 mls/hr 09/21/18 14:43 15:18 Pepcid 20 Mg Premixed Ivpb - IVPB 09/21/18 15:12 100 mls/hr ONCE ONE Administration Sodium Chloride 1,000 ml 09/21/18 14:43 09/21/18 15:18 Normal Saline - IV 09/21/18 14:44 1,000 ml ONCE ONE Administration Medical Decision Making - Medical Decision Making 09/22/18 01:10 43 yo F who presented to the ER due to anemia Pt is supposed to be admitted Admission was not put in Call placed to hospitalist *DC/Admit/Observation/Transfer Diagnosis at time of Disposition: Anemia Qualifiers: Anemia type: other cause Other causes of anemia: other cause, not classified Qualified Code(s): D64.89 - Other specified anemias - Discharge Dispostion Condition at time of disposition: Stable Decision to Admit order: Yes - Referrals Referrals: Casandra Retana MD [Primary Care Provider] - - Patient Instructions - Post Discharge Activity
--- NOTE | 2018-09-22 02:52 | HP ---
CHIEF COMPLAINT: Nausea, Vomiting, and abdominal pain PCP: Dr. Casandra Retana HISTORY OF PRESENT ILLNESS: Pt. is a 43 y.o. F w/ PMHx. of GERD, anemia, menorrhagia (s/p hysterectomy), presents to the ED with abdominal pain, nausea and vomiting for 1 week. Pt. states the abdominal pain is constant but the nausea and vomiting is intermittent. Pt. states that she was in [place] 2 weeks ago and went to eat at a [place] where she had some meat that not everyone in the group partook in. Pt. states that the symptoms started last week Thursday, and endorses 1 bloody BM on and then again on Thursday. Pt. describes the stool as "oily red." Pt. states she had a colonoscopy 2 years ago that was completely benign and denies being told she had diverticulosis or hemorrhoids. Pt. endorses feeling like something is stuck in her throat and denies ever having an endoscopy. Pt. states she was tried on Omerprazole for her GERD to no effect and is now on Protonix for the last 3-4 weeks with no effect. Pt. states she saw her PCP last week for these same issues and was prescribed Zofran and Dicyclomine to no effect. Pt. endorses weight loss over the last 3 weeks (156 lbs-->144 lbs.) unintentionally. Pt. denies having an appetite to eat. Pt. endorses intermittent palpitations especially after nausea and vomiting events. ER course was notable for: (1)Type & Screen, ordered 2 units pRBCs, 1L NS (2) Famotidine, CT-A/P, UA/UCx., simethicone (3) EKG Recent Travel: Was in [place], [place] 2 weeks ago PAST MEDICAL HISTORY: As above PAST SURGICAL HISTORY: x 3, Hysterectomy, 2 LE vein surgeries Social History: Smoking: Denies Alcohol: Denies Drugs: Denies Family History: Aunt- Heart Disease, Grandfather- Leukemia, Grandmother- DM, Mom -Anemia Allergies Penicillins Allergy (Verified 03/13/18 12:52) Itching HOME MEDICATIONS: Home Medications Medication Instructions Recorded NK [No Known Home Medication] 05/05/18 REVIEW OF SYSTEMS As above PHYSICAL EXAMINATION Vital Signs - 24 hr 0609/21/18 09/21/18 12:46 13:56 16:31 Temperature 99.6 F Pulse Rate 68 Pulse Rate [ 68 Right Radial] Respiratory 18 16 Rate Blood Pressure 110/52 L Blood Pressure 112/50 L [Left Arm] O2 Sat by Pulse 100 100 98 Oximetry (%) 09/21/18 09/21/18 09/21/18 22:43 22:50 23:05 Temperature 99.3 F 99.3 F 99.3 F Pulse Rate Pulse Rate [ 82 88 Right Radial] Respiratory 20 20 Rate Blood Pressure Blood Pressure 105/69 92/52 L [Left Arm] O2 Sat by Pulse 98 98 Oximetry (%) 09/22/18 00:49 Temperature 99.3 F Pulse Rate Pulse Rate [ 79 Right Radial] Respiratory 20 Rate Blood Pressure Blood Pressure 100/66 [Left Arm] O2 Sat by Pulse 99 Oximetry (%) GENERAL: Awake, alert, and fully oriented, in no acute distress. HEAD: Normal with no signs of trauma. EYES: Pupils equal, round and reactive to light, extraocular movements intact, sclera anicteric, conjunctiva clear. EARS, NOSE, THROAT: Ears normal, nares patent, oropharynx clear without exudates. Moist mucous membranes. NECK: Normal range of motion, supple without lymphadenopathy, JVD, or masses. LUNGS: Breath sounds equal, clear to auscultation bilaterally. No wheezes, and no crackles. No accessory muscle use. HEART: Irregular rate and rhythm, normal S1 and S2 with murmur at L. 2nd intercostal space ABDOMEN: Soft, LLQ>>LUQ>>epigastric tenderness, not distended, normoactive bowel sounds, no guarding, no rebound, splenomegaly. GHAZAL showed no gerber blood on glove, good rectal tone, 5cm external skin tags, no internal hemorrhoids appreciated. MUSCULOSKELETAL: Normal range of motion at all joints. No bony deformities or tenderness. No CVA tenderness. UPPER EXTREMITIES: 2+ radial pulses, warm, well-perfused. No cyanosis. No clubbing. No peripheral edema. LOWER EXTREMITIES: 2+ dorsal pedal pulses, warm, well-perfused. No calf tenderness. No peripheral edema. NEUROLOGICAL: Normal speech. Gait not assessed. PSYCHIATRIC: Cooperative. Good eye contact. Appropriate mood and affect. SKIN: Warm, dry, normal turgor, no rashes or lesions noted, normal capillary refill. Laboratory Results - last 24 hr 09/21/18 09/21/18 09/21/18 14:52 15:02 15:02 WBC 5.4 RBC 3.93 Hgb 6.1 L* Hct 21.9 L D MCV 55.8 L MCH 15.6 L D MCHC 28.0 L RDW 20.1 H Plt Count 216 D MPV 9.9 Absolute Neuts (auto) 2.8 Neutrophils % 51.0 Lymphocytes % 27.6 Monocytes % 12.7 H D Eosinophils % 6.4 H Basophils % 2.3 H Nucleated RBC % 1 H Hypochromia 3+ Platelet Estimate Adequate Anisocytosis 2+ Sodium 137 Potassium 3.7 Chloride 103 Carbon Dioxide 24 Anion Gap 10 BUN 6 L Creatinine 0.5 L Est GFR (CKD-EPI)AfAm 135.47 Est GFR (CKD-EPI)NonAf 116.89 Random Glucose 102 Calcium 8.5 Total Bilirubin 0.5 AST 14 L ALT 10 L Alkaline Phosphatase 40 L Creatine Kinase Troponin I Total Protein 7.5 Albumin 4.0 Lipase 158 Serum , Qual Urine Color Yellow Urine Appearance Clear Urine pH 6.5 Ur Specific [place] 1.014 Urine Protein Negative Urine Glucose (UA) Negative Urine Ketones Negative Urine Blood Negative Urine Nitrite Negative Urine Bilirubin Negative Urine Urobilinogen 1.0 Ur Leukocyte Esterase Trace Urine WBC (Auto) 2 Urine RBC (Auto) 1 Urine Casts (Auto) 2 U Epithel Cells (Auto) 0.6 Urine Bacteria (Auto) 7.6 Urine HCG, Qual Negative Stool Occult Blood Blood Type Antibody Screen Antibody Identification Antigen Identification Crossmatch 09/21/18 09/21/18 09/21/18 15:02 15:02 16:33 WBC RBC Hgb Hct MCV MCH MCHC RDW Plt Count MPV Absolute Neuts (auto) Neutrophils % Lymphocytes % Monocytes % Eosinophils % Basophils % Nucleated RBC % Hypochromia Platelet Estimate Anisocytosis Sodium Potassium Chloride Carbon Dioxide Anion Gap BUN Creatinine Est GFR (CKD-EPI)AfAm Est GFR (CKD-EPI)NonAf Random Glucose Calcium Total Bilirubin AST ALT Alkaline Phosphatase Creatine Kinase 32 Troponin I < 0.02 Total Protein Albumin Lipase Serum , Qual Negative Urine Color Urine Appearance Urine pH Ur Specific [place] Urine Protein Urine Glucose (UA) Urine Ketones Urine Blood Urine Nitrite Urine Bilirubin Urine Urobilinogen Ur Leukocyte Esterase Urine WBC (Auto) Urine RBC (Auto) Urine Casts (Auto) U Epithel Cells (Auto) Urine Bacteria (Auto) Urine HCG, Qual Stool Occult Blood Blood Type A NEGATIVE Antibody Screen Negative Antibody Identification No Result Required. Antigen Identification No Result Required. Crossmatch See Detail 09/22/18 02:05 WBC RBC Hgb Hct MCV MCH MCHC RDW Plt Count MPV Absolute Neuts (auto) Neutrophils % Lymphocytes % Monocytes % Eosinophils % Basophils % Nucleated RBC % Hypochromia Platelet Estimate Anisocytosis Sodium Potassium Chloride Carbon Dioxide Anion Gap BUN Creatinine Est GFR (CKD-EPI)AfAm Est GFR (CKD-EPI)NonAf Random Glucose Calcium Total Bilirubin AST ALT Alkaline Phosphatase Creatine Kinase Troponin I Total Protein Albumin Lipase Serum , Qual Urine Color Urine Appearance Urine pH Ur Specific [place] Urine Protein Urine Glucose (UA) Urine Ketones Urine Blood Urine Nitrite Urine Bilirubin Urine Urobilinogen Ur Leukocyte Esterase Urine WBC (Auto) Urine RBC (Auto) Urine Casts (Auto) U Epithel Cells (Auto) Urine Bacteria (Auto) Urine HCG, Qual Stool Occult Blood Negative Blood Type Antibody Screen Antibody Identification Antigen Identification Crossmatch ASSESSMENT/PLAN: Pt. is a 43 y.o. F w/ PMHx. of GERD, anemia, menorrhagia (s/p hysterectomy), presents to the ED with abdominal pain, nausea and vomiting for 1 week. #Lower GI Bleed after ingestion of meat likely 2/2 diverticular vs. AV; cannot r/o malignancy Protonix 40mg BID NPO IVF GI Consult (Dr. Meadows) appreciated f/u FOBT consider bleeding scan if actively bleeding will likely need repeat colonoscopy f/u Procalcitonin, stool studies, FOBT #Microcytic Anemia Hgb: 6.1--> 2 units pRBCs ordered--> f/u rpt Hgb likely secondary to chronic pathology f/u reticulocyte--> calculate reticulocyte index f/u Iron studies, Hgb electrophoresis, siderocyte stain however as Pt.s has received 1 unit pRBCs prior to obtaining, will likely have contaminated results. CT-AP: 1.2 cm non-specific density abutting the leeft ureter, f/u MRI w/ contrast recommended, mild enlarged RLQ lymph nodes, mild splenomegaly, lower lobe atelectasis Heme/Onc consult (Dr. Crum) appreciated to evaluate for lymphoma (splenomegaly , weight loss, LN prominence on CT-A/P) #GERD c/w Protonix BID will likely need EGD #Left upper extremity radiating pain f/u C-Spine Xray may need outpatient referral for pain management or orthopedist #FEN LR @ 100ml/hr monitor electrolytes and replete as needed NPO #DVT Ppx. SCDs TEDs Hold AC in setting of Lower GI bleed Visit type - Emergency Visit Emergency Visit: Yes ED Registration Date: 09/22/18 Care time: The patient presented to the Emergency Department on the above date and was hospitalized for further evaluation of their emergent condition. - New Patient This patient is new to me today: Yes Date on this admission: 09/22/18 - Critical Care Critical Care patient: No
[2018-09-22] MEDS: LACTATED RINGERS SOLUTION 1,000 ML IV SCH ×2 (05:53→15:44)
[2018-09-22 05:59] LABS: BASO % 1.2 % (0-2.0); HEMOGLOBIN 7.6 GM/dL (10.7-15.3); RBC 4.01 M/mm3 (3.60-5.2)
[2018-09-22 06:11] LABS: EOS % 3.4 % (0-4.5); LYMPH % 15.5 % (8-40); MCHC 30.4 g/dl (32.0-36.0); MEAN CELL VOLUME 62.3 fl (80-96); MEAN PLT VOLUME 9.4 fl (7.5-11.1); MONO % 10.1 % (3.8-10.2); NEUT % 69.8 % (42.8-82.8); PLATELET COUNT 187 K/MM3 (134-434); WHITE BLOOD COUNT 6.1 K/mm3 (4.0-10.0)
[2018-09-22 06:13] LABS: INR 1.16 (0.83-1.09); PROTHROMBIN TIME (PATIENT) 13.7 SEC (9.7-13.0)
[2018-09-22 06:15] LABS: ACTIVATED PTT 28.9 SECONDS (25.2-36.5)
[2018-09-22 07:28] LABS: MCH 18.9 pg (25.7-33.7)
[2018-09-22] MEDS: PANTOPRAZOLE SODIUM 40 MG VIAL IVPUSH SCH ×2 (09:28→21:57)
--- NOTE | 2018-09-22 10:08 | EKG ---
Test Reason : Blood Pressure : / mmHG Vent. Rate : 084 BPM Atrial Rate : 084 BPM P-R Int : 154 ms QRS Dur : 094 ms QT Int : 398 ms P-R-T Axes : 020 026 057 degrees QTc Int : 470 ms SINUS RHYTHM WITH PREMATURE ATRIAL COMPLEXES WITH ABERRANT CONDUCTION OTHERWISE NORMAL ECG WHEN COMPARED WITH ECG OF 05-MAY-2018 08:49, PREMATURE VENTRICULAR COMPLEXES ARE NO LONGER PRESENT ABERRANT CONDUCTION IS NOW PRESENT Confirmed by KEVIN GARCIA, SUZAN ([id number]) on 09/22/2018 10:07:45 AM Referred By: Confirmed By:SUZAN BROWN MD
--- NOTE | 2018-09-22 12:06 | PN ---
Progress Note (short form) - Note Progress Note: has complaints left abdomen no nausea no rectal bleeding today Vital Signs - 24 hr 09/21/18 09/21/18 09/21/18 22:43 22:50 23:05 Temperature 99.3 F 99.3 F 99.3 F Pulse Rate Pulse Rate [ 82 88 Right Radial] Respiratory 20 20 Rate Blood Pressure Blood Pressure 105/69 92/52 L [Left Arm] O2 Sat by Pulse 98 98 Oximetry (%) 09/22/18 09/22/18 09/22/18 00:49 04:47 08:39 Temperature 99.3 F 99.6 F 99.6 F Pulse Rate 83 84 Pulse Rate [ 79 Right Radial] Respiratory 20 17 20 Rate Blood Pressure 108/64 101/54 L Blood Pressure 100/66 [Left Arm] O2 Sat by Pulse 99 98 Oximetry (%) Current Medications Generic Name Dose Route Start Last Admin Trade Name Freq PRN Reason Stop Dose Admin Lactated Ringer's 1,000 mls @ 100 mls/hr 09/22/18 02:30 09/22/18 15:44 Lactated Ringers Solution IV 100 mls/hr ASDIR NEREIDA Administration Pantoprazole Sodium 40 mg 09/22/18 10:00 09/22/18 09:28 Protonix Iv IVPUSH 40 mg BID NEREIDA Administration Laboratory Results - last 24 hr 09/21/18 09/21/18 09/22/18 15:02 16:33 02:05 WBC RBC Hgb Hct MCV MCH MCHC RDW Plt Count MPV Absolute Neuts (auto) Neutrophils % Lymphocytes % Monocytes % Eosinophils % Basophils % Nucleated RBC % Hypochromia 3+ Platelet Estimate Adequate Anisocytosis 2+ Retic Count PT with INR INR PTT (Actin FS) Magnesium Ferritin Troponin I Stool Occult Blood Negative Blood Type A NEGATIVE Antibody Screen Negative Antibody Identification No Result Required. Antigen Identification No Result Required. Crossmatch See Detail 09/22/18 09/22/18 09/22/18 02:33 04:20 04:20 WBC RBC Hgb Hct MCV MCH MCHC RDW Plt Count MPV Absolute Neuts (auto) Neutrophils % Lymphocytes % Monocytes % Eosinophils % Basophils % Nucleated RBC % Hypochromia Platelet Estimate Anisocytosis Retic Count 2.21 H D PT with INR INR PTT (Actin FS) Magnesium Ferritin 1.1 L Troponin I < 0.02 Stool Occult Blood Blood Type Antibody Screen Antibody Identification Antigen Identification Crossmatch 09/22/18 09/22/18 09/22/18 05:36 05:36 05:36 WBC 6.1 RBC 4.01 Hgb 7.6 L Hct 25.0 L MCV 62.3 L D MCH 18.9 L D MCHC 30.4 L RDW 30.0 H Plt Count 187 MPV 9.4 Absolute Neuts (auto) 4.2 Neutrophils % 69.8 D Lymphocytes % 15.5 D Monocytes % 10.1 Eosinophils % 3.4 Basophils % 1.2 Nucleated RBC % 0 Hypochromia Platelet Estimate Anisocytosis Retic Count PT with INR 13.70 H INR 1.16 H PTT (Actin FS) 28.9 Magnesium 2.3 Ferritin Troponin I Stool Occult Blood Blood Type Antibody Screen Antibody Identification Antigen Identification Crossmatch 09/22/18 13:20 WBC 6.4 RBC 4.38 Hgb 8.0 L Hct 27.1 L MCV 61.9 L MCH 18.1 L MCHC 29.3 L RDW 29.3 H Plt Count 177 MPV 9.6 Absolute Neuts (auto) Neutrophils % Lymphocytes % Monocytes % Eosinophils % Basophils % Nucleated RBC % Hypochromia Platelet Estimate Anisocytosis Retic Count PT with INR INR PTT (Actin FS) Magnesium Ferritin Troponin I Stool Occult Blood Blood Type Antibody Screen Antibody Identification Antigen Identification Crossmatch S1 S2 RRR Lungs clear No pallor Abd-soft, tender LLQ, ND. BS+ no edema PLAN S/p prbc HCT better CT abd/pelvis noted GI eval Hematology eval - concerning lymph node monitor cbc protonix SCD for dvt prophylaxis start clears Problem List - Problems (1) GI bleed Code(s): K92.2 - GASTROINTESTINAL HEMORRHAGE, UNSPECIFIED (2) Anemia Code(s): D64.9 - ANEMIA, UNSPECIFIED Qualifiers: Anemia type: other cause Other causes of anemia: other cause, not classified Qualified Code(s): D64.89 - Other specified anemias (3) Hypothyroid Code(s): E03.9 - HYPOTHYROIDISM, UNSPECIFIED
[2018-09-22 13:49] LABS: HEMATOCRIT 27.1 % (32.4-45.2); MCHC 29.3 g/dl (32.0-36.0); MEAN CELL VOLUME 61.9 fl (80-96); MEAN PLT VOLUME 9.6 fl (7.5-11.1); PLATELET COUNT 177 K/MM3 (134-434); RBC 4.38 M/mm3 (3.60-5.2); RDW 29.3 % (11.6-15.6); WHITE BLOOD COUNT 6.4 K/mm3 (4.0-10.0)
[2018-09-22 13:54] LABS: MCH 18.1 pg (25.7-33.7)
--- NOTE | 2018-09-22 18:02 | PN ---
Progress Note (short form) - Note Progress Note: GI CONSULT DICTATED PPI F/U CULTURES TREND H/H Q12 AVOID NSAID NPO MIDNIGHT FOR DIAGNOSTIC EGD TOMORROW IF NEGATIVE AND INFECTIOUS WORK UP IS ALSO NEGATIVE REC COLONOSCOPY ON THURSDAY. SEE FULL CONSULT DICTATED
--- NOTE | 2018-09-22 18:10 | CONSULT ---
Consultation: REQUESTING PROVIDER: Dr Mancia CONSULT REQUEST: We have been asked to medically evaluate this patient for ( anemia, lymphadenopathy). HISTORY OF PRESENT ILLNESS: The patient is a 43 y/o F with PMHx of menorrhagia (s/p hysterectomy due to fibroids), anemia, lower GI bleeding hat was admitted to the hospital for lower GI bleeding x 2 associated with over 10 lbs weight loss, nausea and vomiting for the past 3 weeks. The patient visited [place] and states that her n/v, diarrhea started after eating meat. She went to her PCP and was given Protonix and Zofran. She hasn't noticed improvement of her symptoms. She also reports episodes of palpitations and anxiety last week and night sweats. Today she is complaining of mild tenderness on left side of her abdomen. Last BM was 2 days ago. She denies sick contacts, cough, fever. The patient had lower GI bleed 2 years ago, colonoscopy was done and was normal. The patient also had mammogram that was normal. Recent Travel: [place], [place] PAST SURGICAL HISTORY: x 3, Hysterectomy, 2 LE vein surgeries Social History: Smoking: Denies Alcohol: Denies Drugs: Denies Family History: Aunt- Heart Disease, Grandfather- Leukemia, Grandmother- DM, cancer Mother-Anemia REVIEW OF SYSTEMS: CONSTITUTIONAL: Absent: fever, chills, diaphoresis, generalized weakness, malaise, loss of appetite, weight change HEENT: difficulty swallowing Absent: rhinorrhea, nasal congestion, throat pain, throat swelling, mouth swelling, ear pain, eye pain, visual changes CARDIOVASCULAR: palpitations Absent: chest pain, syncope, irregular heart rate, lightheadedness, peripheral edema RESPIRATORY: Absent: cough, shortness of breath, dyspnea with exertion, orthopnea, wheezing, stridor, hemoptysis GASTROINTESTINAL:nausea, vomiting, diarrhea, abdominal pain Absent: abdominal distension, constipation, melena, hematochezia GENITOURINARY: Absent: dysuria, frequency, urgency, hesitancy, hematuria, flank pain, genital pain MUSCULOSKELETAL: Absent: myalgia, arthralgia, joint swelling, back pain, neck pain SKIN: Absent: rash, itching, pallor HEMATOLOGIC/IMMUNOLOGIC: Absent: easy bleeding, easy bruising, lymphadenopathy, frequent infections ENDOCRINE: unexplained weight loss Absent: unexplained weight gain, heat intolerance, cold intolerance NEUROLOGIC: Absent: headache, focal weakness or paresthesias, dizziness, unsteady gait PSYCHIATRIC: Absent: anxiety PHYSICAL EXAMINATION Vital Signs - 24 hr 09/21/18 09/21/18 09/21/18 22:43 22:50 23:05 Temperature 99.3 F 99.3 F 99.3 F Pulse Rate Pulse Rate [ 82 88 Right Radial] Respiratory 20 20 Rate Blood Pressure Blood Pressure 105/69 92/52 L [Left Arm] O2 Sat by Pulse 98 98 Oximetry (%) 09/22/18 09/22/18 09/22/18 00:49 04:47 08:39 Temperature 99.3 F 99.6 F 99.6 F Pulse Rate 83 84 Pulse Rate [ 79 Right Radial] Respiratory 20 17 20 Rate Blood Pressure 108/64 101/54 L Blood Pressure 100/66 [Left Arm] O2 Sat by Pulse 99 98 Oximetry (%) GENERAL: Awake, alert, and fully oriented, in no acute distress. HEAD: Normal with no signs of trauma. EYES: Extraocular movements intact, sclera anicteric, conjunctiva clear. EARS, NOSE, THROAT: Ears normal, nares patent, oropharynx clear without exudates. Moist mucous membranes. NECK: Normal range of motion, supple without lymphadenopathy, JVD, or masses. LUNGS: Breath sounds equal, clear to auscultation bilaterally. No wheezes, and no crackles. No accessory muscle use. HEART: Regular rate and rhythm, normal S1 and S2 without murmur, rub or gallop. ABDOMEN: Soft, mild tenderness in left upper quadrant, not distended, normoactive bowel sounds, no guarding, no rebound, no masses. No hepatomegaly or splenomegaly. MUSCULOSKELETAL: Normal range of motion at all joints. No bony deformities or tenderness. No CVA tenderness. UPPER EXTREMITIES: No peripheral edema. LOWER EXTREMITIES: No peripheral edema. NEUROLOGICAL: Normal speech, non focal. PSYCHIATRIC: Cooperative. Good eye contact. Appropriate mood and affect. SKIN: Warm, dry, normal turgor, no rashes or lesions noted. BREAST: symmetric, no masses, no nipple discharge, no erythema. Laboratory Results - last 24 hr 09/21/18 09/21/18 09/22/18 15:02 16:33 02:05 WBC RBC Hgb Hct MCV MCH MCHC RDW Plt Count MPV Absolute Neuts (auto) Neutrophils % Lymphocytes % Monocytes % Eosinophils % Basophils % Nucleated RBC % Hypochromia 3+ Platelet Estimate Adequate Anisocytosis 2+ Retic Count PT with INR INR PTT (Actin FS) Magnesium Ferritin Troponin I Stool Occult Blood Negative Blood Type A NEGATIVE Antibody Screen Negative Antibody Identification No Result Required. Antigen Identification No Result Required. Crossmatch See Detail 09/22/18 09/22/18 09/22/18 02:33 04:20 04:20 WBC RBC Hgb Hct MCV MCH MCHC RDW Plt Count MPV Absolute Neuts (auto) Neutrophils % Lymphocytes % Monocytes % Eosinophils % Basophils % Nucleated RBC % Hypochromia Platelet Estimate Anisocytosis Retic Count 2.21 H D PT with INR INR PTT (Actin FS) Magnesium Ferritin 1.1 L Troponin I < 0.02 Stool Occult Blood Blood Type Antibody Screen Antibody Identification Antigen Identification Crossmatch 09/22/18 09/22/18 09/22/18 05:36 05:36 05:36 WBC 6.1 RBC 4.01 Hgb 7.6 L Hct 25.0 L MCV 62.3 L D MCH 18.9 L D MCHC 30.4 L RDW 30.0 H Plt Count 187 MPV 9.4 Absolute Neuts (auto) 4.2 Neutrophils % 69.8 D Lymphocytes % 15.5 D Monocytes % 10.1 Eosinophils % 3.4 Basophils % 1.2 Nucleated RBC % 0 Hypochromia Platelet Estimate Anisocytosis Retic Count PT with INR 13.70 H INR 1.16 H PTT (Actin FS) 28.9 Magnesium 2.3 Ferritin Troponin I Stool Occult Blood Blood Type Antibody Screen Antibody Identification Antigen Identification Crossmatch 09/22/18 13:20 WBC 6.4 RBC 4.38 Hgb 8.0 L Hct 27.1 L MCV 61.9 L MCH 18.1 L MCHC 29.3 L RDW 29.3 H Plt Count 177 MPV 9.6 Absolute Neuts (auto) Neutrophils % Lymphocytes % Monocytes % Eosinophils % Basophils % Nucleated RBC % Hypochromia Platelet Estimate Anisocytosis Retic Count PT with INR INR PTT (Actin FS) Magnesium Ferritin Troponin I Stool Occult Blood Blood Type Antibody Screen Antibody Identification Antigen Identification Crossmatch Active Medications Generic Name Dose Route Start Last Admin Trade Name Freq PRN Reason Stop Dose Admin Lactated Ringer's 1,000 mls @ 100 mls/hr 09/22/18 02:30 09/22/18 15:44 Lactated Ringers Solution IV 100 mls/hr ASDIR NEREIDA Administration Pantoprazole Sodium 40 mg 09/22/18 10:00 09/22/18 09:28 Protonix Iv IVPUSH 40 mg BID NEREIDA Administration CT abdomen/pelvis: 1.2 x 1 cm nonspecific density is seen abutting the proximal left ureter - ? enlarged lymph node. There is no hydronephrosis. Additional evaluation utilizing contrast enhanced MRI is suggested. Several mildly enlarged right lower quadrant mesenteric lymph nodes are seen. Minimal to mild splenomegaly. Minimal to mild right posterior basilar subpleural opacity is seen probably representing atelectasis, less likely a small infiltrate. ASSESSMENT/PLAN: The patient is a 43 y/o F with PMHx of menorrhagia (s/p hysterectomy due to fibroids), anemia, lower GI bleeding hat was admitted to the hospital for lower GI bleeding x 2 associated with over 10 lbs weight loss, nausea and vomiting for the past 3 weeks. Hem/Onc was consulted for anemia and lymphadnopathy found on CT abdomen. lower GI bleeding nausea/vomiting/abdominal pain lymphadenopathy Plan: We believe that her abdominal lymphadenopathy may be reactive or may not. Recommendation is to obtain CRP, sedimentation rate. We will also follow up GI endoscopy and make decision about IR guided biopsy. Please check TSH. Dispo: We will continue to follow the patient. Thank you for this consultative opportunity. Problem List - Problems (1) Anemia Code(s): D64.9 - ANEMIA, UNSPECIFIED Qualifiers: Anemia type: other cause Other causes of anemia: other cause, not classified Qualified Code(s): D64.89 - Other specified anemias (2) GI bleed Code(s): K92.2 - GASTROINTESTINAL HEMORRHAGE, UNSPECIFIED (3) Menorrhagia Code(s): N92.0 - EXCESSIVE AND FREQUENT MENSTRUATION WITH REGULAR CYCLE Visit type - Emergency Visit Emergency Visit: Yes ED Registration Date: 09/22/18 Care time: The patient presented to the Emergency Department on the above date and was hospitalized for further evaluation of their emergent condition. - New Patient This patient is new to me today: Yes Date on this admission: 09/22/18 - Critical Care Critical Care patient: No
--- NOTE | 2018-09-22 18:19 | PN ---
Teaching Attending Note Name of Resident: Luana Singleton ATTENDING PHYSICIAN STATEMENT I saw and evaluated the patient. I reviewed the resident's note and discussed the case with the resident. I agree with the resident's findings and plan as documented. SUBJECTIVE: OBJECTIVE: ASSESSMENT AND PLAN: Patient seen and examined 43 year old female born in [facility] who came to [place] years ago who presents with several week history of abdominal pain , weight loss of >10 lbs, watery diarrhea including bloody diarrhea. Relates recent symptoms to trip in [facility]. Past history of hysterectomy for menorrhagia secondary to fibroids and C- section x 3. No prior history of industrial exposures or intoxicants. No smoking, drinking , or illicit drugs. Family history positive with mother with anemia, MGF with leukemia and Muncle with Ca of ? type. Ros - non contributory but for G syptoms and weight loss. no fevers, sweating of neck h.s. but no true drenching night sweats. Has lymphadenopathy of CT scan in mesentery. Has hypo/micro anemia with relatively well preserved RBC count suggestive of thalassemia in addition to Fe++ defiecincy with ferritin of 1.1 Last Vital Signs Temp Pulse Resp BP Pulse Ox 99.6 F 84 20 101/54 L 98 09/22/18 08:39 09/22/18 08:39 09/22/18 08:39 09/22/18 08:39 09/22/18 08:39 HEENT: GALLITO, EOM Intact Oropharynx: No thrush, No mucositis Neck: Supple Nodes: Without adenopathy Breasts: Without masses Cor: RSR, No murmurs, No gallops Lungs: Clear to P&A Abd: Soft, Normal bowel sounds, No organomegaly Ext:No significant edema Skin: No rashes, Integument intact CBC, BMP 09/22/18 13:20 09/21/18 15:02 Has been transfused Impression Anemia- Fe++ deficiency , ? thalassemia- await HbE GI abnormalites- for upper and lower endoscopy Decision await management of nodes pending endoscopic evaluation and cultures. would obtain ESR and CRP.
--- NOTE | 2018-09-22 18:32 | CONS ---
GASTROENTEROLOGY CONSULTATION DATE OF CONSULTATION: 09/22/2018 The patient is a 43-year-old female with a past medical history of reflux disease, anemia, menorrhagia, 3 C-sections, status post hysterectomy in the past, who presents to the ER with complaints of 3 episodes of hematochezia. Apparently, her first episode was reported to be on Thursday of last week, and following that, on Thursday, she had 2 additional episodes. She admits to a little bit of crampy abdominal pain associated with these symptoms. She also had episodes of nausea and vomiting. Apparently, she was in [place] 2 weeks ago and ate at a steak house and states that her symptoms began shortly thereafter. She also admits to weight loss and decreased p.o. intake over the past couple of weeks. She denies any hematemesis or melena. Her last colonoscopy was done 2 years ago she reports by Dr. Sheth, and findings included diverticulosis and hemorrhoids. She also admits to taking ibuprofen for her pain over the past couple of weeks. She has never had an upper endoscopy in the past. PAST MEDICAL AND SURGICAL HISTORY: As listed in the HPI. ALLERGIES: PENICILLIN. SOCIAL HISTORY: Does not drink, smoke, or use drugs. FAMILY HISTORY: Significant for heart disease and leukemia. HOME MEDICATIONS: Ibuprofen p.r.n. REVIEW OF SYSTEMS: As per the HPI. PHYSICAL EXAMINATION: Vital Signs: Temperature 99.6, blood pressure 101/54, respiratory rate 12, and 98% on room air is the oxygen saturation. General: No acute distress. HEENT: Anicteric sclerae. Cardiovascular: S1, S2. Regular rate and rhythm. Lungs: Bilaterally clear to auscultation. Abdomen: Soft and nontender. Extremities: No edema. LABORATORY DATA: Her hemoglobin on admission was 6.1. Currently, after blood transfusion, 12/14 with an MCV of 61, platelet count 177. INR 1.1. Chemistry: No chemistry was done today. Iron studies are pending. Troponin is negative. Stool for occult blood on the fifth is negative, and the UA is also negative. She had a CT scan of the abdomen and pelvis on the fourth with contrast, which revealed a 1 x 1 non-specific density abutting the proximal left ureter, question of enlarged lymph node. No hydronephrosis. An MRI was recommended. Several mildly-enlarged right lower quadrant mesenteric lymph nodes are seen. [id number] splenomegaly. Omdcplm-wg-meyz right posterior basilar subpleural opacity representing atelectasis. IMPRESSION: Hematochezia, nausea and vomiting, and some crampy abdominal pain. She may have an underlying infectious etiology which was complicated by a potential lower gastrointestinal bleed secondary to diverticulosis in the setting of ibuprofen use. Upper gastrointestinal source cannot be entirely excluded at this time. She is hemodynamically stable without sign of an overt gastrointestinal bleed. RECOMMENDATION: Protonix 40 mg IV daily. She can be started on a clear-liquid diet. Avoid NSAID. evaluation for anemia. Stool cultures, ova, parasite, leukocyte, C. difficile. Trend hemoglobin q.12 while hospitalized. Keep hemoglobin above 8. Will make her n.p.o. midnight for diagnostic upper endoscopy tomorrow morning to rule out an upper GI source of her anemia in the setting of ibuprofen use. If that is negative and her cultures are negative, would recommend colonoscopy to follow the following day. Plan of care was explained to the patient in detail. DO JOSE JUAREZ/[id number]
[2018-09-22 22:01] LABS: HEMOGLOBIN 7.2 GM/dL (10.7-15.3); MCHC 29.9 g/dl (32.0-36.0); MEAN CELL VOLUME 61.6 fl (80-96); MEAN PLT VOLUME 10.1 fl (7.5-11.1); PLATELET COUNT 170 K/MM3 (134-434); RDW 28.4 % (11.6-15.6); WHITE BLOOD COUNT 5.3 K/mm3 (4.0-10.0)
[2018-09-22 22:08] LABS: MCH 18.4 pg (25.7-33.7)
[2018-09-23 04:10] LABS: SERUM IRON SATURATION 35 % (15-55); TOTAL IRON BINDING CAPACITY 383 ug/dL (250-450); UIBC 248 ug/dL (131-425)
[2018-09-23 08:38] LABS: HEMATOCRIT 25.5 % (32.4-45.2); HEMOGLOBIN 7.8 GM/dL (10.7-15.3); MCHC 30.4 g/dl (32.0-36.0); MEAN CELL VOLUME 61.6 fl (80-96); MEAN PLT VOLUME 10.2 fl (7.5-11.1); PLATELET COUNT 223 K/MM3 (134-434); RBC 4.14 M/mm3 (3.60-5.2); RDW 28.9 % (11.6-15.6); WHITE BLOOD COUNT 4.5 K/mm3 (4.0-10.0)
[2018-09-23 08:41] LABS: MCH 18.7 pg (25.7-33.7)
--- NOTE | 2018-09-23 10:04 | PN ---
Progress Note (short form) - Note Progress Note: EGD postponed. Anesthesia was concerned re: potential conduction abnormality on admission EKG and dropped beats noted on exam. BMP, magnesium ordered and advised her nurse to transfer to telemetry setting. Keep NPO, PPI. D/W Dr. Gaines
[2018-09-23 10:27] LABS: ALBUMIN 3.6 g/dl (3.4-5.0); ALK PHOS 37 U/L (45-117); ANION GAP 7 MMOL/L (8-16); BILIRUBIN,TOTAL 0.8 mg/dL (0.2-1); BLOOD UREA NITROGEN 4 mg/dL (7-18); CALCIUM 8.6 mg/dL (8.5-10.1); CHLORIDE 108 mmol/L (98-107); CO2 26 mmol/L (21-32); CREATININE 0.5 mg/dL (0.55-1.3); GLUCOSE,RANDOM 85 mg/dL (74-106); MAGNESIUM 2.4 mg/dL (1.8-2.4); PHOSPHOROUS 3.8 mg/dL (2.5-4.9); POTASSIUM 3.7 mmol/L (3.5-5.1); SGOT/AST 13 U/L (15-37); SGPT/ALT 10 U/L (13-61); SODIUM 141 mmol/L (136-145); TOT PROT 6.6 g/dl (6.4-8.2)
--- NOTE | 2018-09-23 12:02 | CON.CARD ---
Consult Consult Specialty:: Cardiology Referred by:: Minda Gaines MD Reason for Consultation:: Pre-procedure CV evaluation, PVC - History of Present Illness Chief Complaint: Abd pain History of Present Illness: Patient is an 43 year old woman with PMH of menometrorrhagia, anemia (noted 5 years ago), hysterectomy (4 years ago) and penicillin allergy who presents to the ER complaining of abdominal pain associated with nausea and vomiting, tenesmus, watery and bloody diarrhea, weight loss>10 lbs and anorexia improving , admits to ibuprofen use planned for EGD and colonoscopy, deferred due to frequent PVC on telemetry monitoring, PVC seen on 04/2018 ECG. She denies angina , dyspnea, palpitations, near or true syncope, orthopnea, PND, LE edema or change in exercise capacity. 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 History of Recent Travel: No Home Medications - Allergies Allergies/Adverse Reactions: Allergies Allergy/AdvReac Type Severity Reaction Status Date / Time Penicillins Allergy Itching Verified 03/13/18 12:52 - Home Medications Home Medications: Ambulatory Orders NK [No Known Home Medication] 05/05/18 Family Disease History - Family Disease History Family Disease History: Other: Father (no CAD or other heart disease), Mother ( no CAD or other heart disease), Brother (no CAD or other heart disease), Sister (no CAD or other heart disease) Review of Systems - Review of Systems Gastrointestinal: reports: Abdominal Pain, Diarrhea, Nausea, Rectal Bleeding, Vomiting Vital Signs: Vital Signs Temperature 99.2 F 09/23/18 08:33 Pulse Rate 64 09/23/18 08:33 Respiratory Rate 20 09/23/18 08:33 Blood Pressure 113/75 09/23/18 08:33 O2 Sat by Pulse Oximetry (%) 97 09/22/18 21:00 Constitutional: Yes: No Distress, Calm Neck: Yes: Supple Respiratory: Yes: Regular, CTA Bilaterally Gastrointestinal: Yes: Soft, Hypoactive Bowel Sounds Cardiovascular: Yes: Regular Rate and Rhythm, Other (with ectopic beats) JVD: No Carotid Bruit: No Heart Sounds: Yes: S1, S2 Murmur: Yes: Systolic Murmur, Grade 1 Edema: No - Other Data Labs, Other Data: CBC, BMP 09/23/18 07:40 09/23/18 07:40 INR, PTT INR 1.16 (0.83-1.09) H 09/22/18 05:36 NSR @ 84 with frequent PVC similar to previous 09/21/2018 Echo: Pending Problem List - Problems (1) Asymptomatic PVCs Code(s): I49.3 - VENTRICULAR PREMATURE DEPOLARIZATION (2) Anemia Code(s): D64.9 - ANEMIA, UNSPECIFIED Qualifiers: Anemia type: other cause Other causes of anemia: other cause, not classified Qualified Code(s): D64.89 - Other specified anemias (3) GI bleed Code(s): K92.2 - GASTROINTESTINAL HEMORRHAGE, UNSPECIFIED (4) Pre-procedural cardiovascular examination Code(s): Z01.810 - ENCOUNTER FOR PREPROCEDURAL CARDIOVASCULAR EXAMINATION Assessment/Plan 1. Abd pain, hematochezia planned for EGD/colonoscopy 2. Asymptomatic PVC 3. Iron deficiency anemia ? thalassemia- await HbE P:1. Echo to assess ventricular and valve fxn 2. Holter monitor to assess PVC burden, keep K>4.5, Mg>2.5, thyroid panel reviewed 3. PPI, avoid NSAIDs, monitor Hgb post transfusion, clear liquid diet 4. Plans for EGD/colonoscopy pending above study results 5. Thank you for consultative opportunity
[2018-09-23] MEDS ORDERED: POTASSIUM CHLORIDE ORAL LIQUID 20 MEQ/15 ML PO ONE (12:45)
--- NOTE | 2018-09-23 12:51 | EKG ---
Test Reason : Blood Pressure : / mmHG Vent. Rate : 081 BPM Atrial Rate : 081 BPM P-R Int : 144 ms QRS Dur : 088 ms QT Int : 410 ms P-R-T Axes : 019 -04 047 degrees QTc Int : 476 ms SINUS RHYTHM WITH FREQUENT PREMATURE VENTRICULAR COMPLEXES OTHERWISE NORMAL ECG WHEN COMPARED WITH ECG OF 21-SEP-2018 15:02, PREMATURE VENTRICULAR COMPLEXES ARE NOW PRESENT ABERRANT CONDUCTION IS NO LONGER PRESENT Confirmed by SNOW GARCIA, DENICE ([id number]) on 09/23/2018 12:51:23 PM Referred By: Confirmed By:DENICE ADAMSON MD
[2018-09-23] MEDS: PANTOPRAZOLE SODIUM 40 MG VIAL IVPUSH SCH ×2 (12:52→21:58)
[2018-09-23] MEDS: LACTATED RINGERS SOLUTION 1,000 ML IV SCH (13:01)
[2018-09-23 14:23] LABS: HEMATOCRIT 26.8 % (32.4-45.2); HEMOGLOBIN 8.1 GM/dL (10.7-15.3); MCHC 30.2 g/dl (32.0-36.0); MEAN CELL VOLUME 61.3 fl (80-96); MEAN PLT VOLUME 9.5 fl (7.5-11.1); PLATELET COUNT 216 K/MM3 (134-434); RBC 4.36 M/mm3 (3.60-5.2); RDW 29.8 % (11.6-15.6); WHITE BLOOD COUNT 5.6 K/mm3 (4.0-10.0)
[2018-09-23 14:26] LABS: MCH 18.5 pg (25.7-33.7)
--- NOTE | 2018-09-23 15:52 | ECHO ---
Name: ANABELLE TURK Exam:Adult Echocardiogram Study Date: 09/23/2018 02:16 PM Age: 43 yrs Reason For Study: PVC EVALUATE LVF Height: 62 in Weight: 144 lb BSA: 1.7 m2 MMode/2D Measurements & Calculations IVSd: 0.79 cm Ao root diam: 2.6 cm LVIDd: 4.4 cm LA dimension: 3.5 cm LVIDs: 2.9 cm LVPWd: 0.91 cm EDV(Teich): 87.8 ml LVOT diam: 2.2 cm ESV(Teich): 31.0 ml Doppler Measurements & Calculations MV E max daniele: 97.7 cm/sec Ao V2 max: 159.0 cm/sec MV A max daniele: 119.9 cm/sec Ao max P.1 mmHg MV E/A: 0.81 Ao V2 mean: 106.6 cm/sec MV dec time: 0.16 sec Ao mean P.4 mmHg Ao V2 VTI: 30.4 cm HUNTER(I,D): 2.4 cm2 HUNTER(V,D): 2.2 cm2 LV V1 max P.5 mmHg SV(LVOT): 73.5 ml LV V1 mean P.8 mmHg LV V1 max: 93.1 cm/sec LV V1 mean: 63.7 cm/sec LV V1 VTI: 19.3 cm Med Peak E' Daniele: 8.7 cm/sec Med E/e': 11.3 Lat Peak E' Daniele: 7.7 cm/sec Lat E/e': 12.8 Procedure A complete two-dimensional transthoracic echocardiogram was performed (2D, M-mode, Doppler and color flow Doppler). Left Ventricle The left ventricular size, thickness and function are normal. The left ventricular ejection fraction is normal. Ejection Fraction = 60-65%. The left ventricular wall motion is normal. Right Ventricle The right ventricle is normal in size and function. Atria Normal left and right atrial size and function. Mitral Valve There is trace mitral regurgitation. Tricuspid Valve There is trace tricuspid regurgitation. There was insufficient TR detected to calculate RV systolic p ressure. Aortic Valve No hemodynamically significant valvular aortic stenosis. Trace aortic regurgitation. Pulmonic Valve There is no pulmonic valvular regurgitation. Great Vessels The aortic root is normal size. Pericardium/Pleura There is no pericardial effusion. Interpretation Summary The left ventricular size, thickness and function are normal The right ventricle is normal in size and function. There is trace mitral regurgitation. There is trace tricuspid regurgitation. Trace aortic regurgitation. MD Nick Ashford 09/23/2018 03:51 PM
--- NOTE | 2018-09-23 16:51 | PN ---
Progress Note (short form) - Note Progress Note: has complaints left abdomen unable to do EGD due to abnormal arrhythmias seen in Endoscopy suite spoke with GI procedure held Vital Signs - 24 hr 09/22/18 09/22/18 09/23/18 19:04 21:00 05:36 Temperature 99.4 F 98.5 F Pulse Rate 71 71 Respiratory 20 20 Rate Blood Pressure 105/53 L 102/58 L O2 Sat by Pulse 97 Oximetry (%) 09/23/18 09/23/18 08:33 14:00 Temperature 99.2 F 98.3 F Pulse Rate 64 79 Respiratory 20 21 H Rate Blood Pressure 113/75 129/63 O2 Sat by Pulse Oximetry (%) Current Medications Generic Name Dose Route Start Last Admin Trade Name Freq PRN Reason Stop Dose Admin Lactated Ringer's 1,000 mls @ 100 mls/hr 09/22/18 02:30 09/23/18 13:01 Lactated Ringers Solution IV 100 mls/hr ASDIR NEREIDA Administration Pantoprazole Sodium 40 mg 09/22/18 10:00 09/23/18 12:52 Protonix Iv IVPUSH 40 mg BID NEREIDA Administration Laboratory Results - last 24 hr 09/22/18 09/22/18 09/23/18 04:20 21:30 07:40 WBC 5.3 4.5 RBC 3.90 4.14 Hgb 7.2 L 7.8 L Hct 24.0 L 25.5 L MCV 61.6 L 61.6 L MCH 18.4 L 18.7 L MCHC 29.9 L 30.4 L RDW 28.4 H 28.9 H Plt Count 170 223 D MPV 10.1 10.2 ESR Sodium Potassium Chloride Carbon Dioxide Anion Gap BUN Creatinine Est GFR (CKD-EPI)AfAm Est GFR (CKD-EPI)NonAf Random Glucose Calcium Phosphorus Magnesium Iron 135 TIBC 383 Iron Saturation 35 Total Bilirubin AST ALT Alkaline Phosphatase C-Reactive Protein Total Protein Albumin TSH Free T4 09/23/18 09/23/18 09/23/18 07:40 07:40 14:18 WBC 5.6 RBC 4.36 Hgb 8.1 L Hct 26.8 L MCV 61.3 L MCH 18.5 L MCHC 30.2 L RDW 29.8 H Plt Count 216 MPV 9.5 ESR 5 Sodium 141 Potassium 3.7 Chloride 108 H Carbon Dioxide 26 Anion Gap 7 L BUN 4 L Creatinine 0.5 L Est GFR (CKD-EPI)AfAm 135.47 Est GFR (CKD-EPI)NonAf 116.89 Random Glucose 85 Calcium 8.6 Phosphorus 3.8 Magnesium 2.4 Iron TIBC Iron Saturation Total Bilirubin 0.8 AST 13 L ALT 10 L Alkaline Phosphatase 37 L C-Reactive Protein < 0.3 Total Protein 6.6 Albumin 3.6 TSH 5.71 H Free T4 1.19 S1 S2 irregular Lungs clear No pallor Abd-soft, tender LLQ, ND. BS+ no edema PLAN S/p prbc HCT better CT abd/pelvis noted GI eval Hematology eval - concerning lymph node monitor cbc protonix SCD for dvt prophylaxis Cardiology eval transfer to tele Problem List - Problems (1) GI bleed Code(s): K92.2 - GASTROINTESTINAL HEMORRHAGE, UNSPECIFIED (2) Anemia Code(s): D64.9 - ANEMIA, UNSPECIFIED Qualifiers: Anemia type: other cause Other causes of anemia: other cause, not classified Qualified Code(s): D64.89 - Other specified anemias (3) Hypothyroid Code(s): E03.9 - HYPOTHYROIDISM, UNSPECIFIED
[2018-09-23 21:50] LABS: HEMATOCRIT 26.7 % (32.4-45.2); MCHC 29.9 g/dl (32.0-36.0); MEAN CELL VOLUME 61.6 fl (80-96); PLATELET COUNT 224 K/MM3 (134-434); RBC 4.33 M/mm3 (3.60-5.2); RDW 29.8 % (11.6-15.6); WHITE BLOOD COUNT 4.8 K/mm3 (4.0-10.0)
[2018-09-23 22:02] LABS: MCH 18.4 pg (25.7-33.7)
[2018-09-24 07:40] LABS: HEMATOCRIT 25.6 % (32.4-45.2); HEMOGLOBIN 7.8 GM/dL (10.7-15.3); MCHC 30.5 g/dl (32.0-36.0); MEAN CELL VOLUME 61.5 fl (80-96); MEAN PLT VOLUME 10.6 fl (7.5-11.1); PLATELET COUNT 216 K/MM3 (134-434); RBC 4.16 M/mm3 (3.60-5.2); RDW 30.7 % (11.6-15.6); WHITE BLOOD COUNT 3.7 K/mm3 (4.0-10.0)
[2018-09-24 08:16] LABS: MCH 18.7 pg (25.7-33.7)
[2018-09-24 08:56] LABS: ALBUMIN 3.6 g/dl (3.4-5.0); BILIRUBIN,TOTAL 0.9 mg/dL (0.2-1); CALCIUM 8.7 mg/dL (8.5-10.1); CREATININE 0.5 mg/dL (0.55-1.3); MAGNESIUM 2.4 mg/dL (1.8-2.4); TOT PROT 6.5 g/dl (6.4-8.2)
[2018-09-24] MEDS: LACTATED RINGERS SOLUTION 1,000 ML IV SCH ×2 (09:19→20:18)
[2018-09-24] MEDS: PANTOPRAZOLE SODIUM 40 MG VIAL IVPUSH SCH (09:19)
--- NOTE | 2018-09-24 10:48 | PN ---
Progress Note, Physician History of Present Illness: Patient is an 43 year old woman with PMH of menometrorrhagia, anemia (noted 5 years ago), hysterectomy (4 years ago) and penicillin allergy who presents to the ER complaining of abdominal pain associated with nausea and vomiting, tenesmus, watery and bloody diarrhea, weight loss>10 lbs and anorexia improving , admits to ibuprofen use frequent PVC on telemetry monitoring, PVC seen on 2018 ECG. She denies angina, dyspnea, palpitations, near or true syncope, orthopnea, PND, LE edema or change in exercise capacity. Echo shows normal LV fxn, holter pending for PVC burden, underwent EGD showing esophageal stricture w /o sequelae, plan for colonoscopy for anemia eval. - Current Medication List Current Medications: Active Medications Lactated Ringer's (Lactated Ringers Solution) 1,000 mls @ 100 mls/hr IV ASDIR [facility] Last Admin: 09/24/18 09:19 Dose: 100 mls/hr Pantoprazole Sodium (Protonix Iv) 40 mg IVPUSH BID [facility] Last Admin: 09/24/18 09:19 Dose: 40 mg - Objective Vital Signs: Vital Signs Temperature 98.6 F 09/24/18 08:05 Pulse Rate 86 09/24/18 08:05 Respiratory Rate 18 09/24/18 08:05 Blood Pressure 101/60 09/24/18 08:05 O2 Sat by Pulse Oximetry (%) 100 09/24/18 08:05 Constitutional: Yes: No Distress, Calm Neck: Yes: Supple Cardiovascular: Yes: Regular Rate and Rhythm, Other (with ectopy) Respiratory: Yes: Regular, CTA Bilaterally Gastrointestinal: Yes: Soft, Hypoactive Bowel Sounds Edema: No Labs: CBC, BMP 09/24/18 06:24 09/24/18 06:24 INR, PTT INR 1.16 (0.83-1.09) H 09/22/18 05:36 - ....Imaging EKG: Report Reviewed (Tele: NSR occ PVC) Problem List - Problems (1) Asymptomatic PVCs Code(s): I49.3 - VENTRICULAR PREMATURE DEPOLARIZATION (2) Anemia Code(s): D64.9 - ANEMIA, UNSPECIFIED Qualifiers: Anemia type: other cause Other causes of anemia: other cause, not classified Qualified Code(s): D64.89 - Other specified anemias (3) GI bleed Code(s): K92.2 - GASTROINTESTINAL HEMORRHAGE, UNSPECIFIED (4) Pre-procedural cardiovascular examination Code(s): Z01.810 - ENCOUNTER FOR PREPROCEDURAL CARDIOVASCULAR EXAMINATION Assessment/Plan 09/23/2018 Echo: Normal biventricular size and fxn, tr MR, TR, AR 1. Abd pain, hematochezia planned for colonoscopy 2. Asymptomatic PVC 3. Iron deficiency anemia ? thalassemia- await HbE 4. Esophageal stricture P: 1. Holter monitor to assess PVC burden, keep K>4.5, Mg>2.5, thyroid panel reviewed 2. PPI, avoid NSAIDs, monitor Hgb post transfusion, clear liquid diet 3. Plans for colonoscopy pending above study results
--- NOTE | 2018-09-24 11:32 | PN ---
Progress Note (short form) - Note Progress Note: pt seen/ examined chart reviewed awake/ comfortable no complains offered Vital Signs Temp 98.6 F 09/24/18 08:05 Pulse 86 09/24/18 08:05 Resp 18 09/24/18 08:05 BP 101/60 09/24/18 08:05 Pulse Ox 100 09/24/18 08:05 Intake & Output 09/23/18 09/23/18 09/24/18 11:59 23:59 11:59 Intake Total 7780 405 3348 Balance 4278 986 3635 Weight 144 lb 140 lb Intake: IV 9872 790 5862 Lactated Ringers Solution 7076 366 1597 1,000 ml @ 100 mls/hr IV ASDIR [facility] Rx#: [id number] IVPB 0 Oral 0 Other: Voiding Method Toilet Toilet # Unmeasured Voids Void 2 1 Bowel Movement No No # Bowel Movements 0 Weight Measurement Method Built in Bedscale Standing Scale Active Medications Lactated Ringer's (Lactated Ringers Solution) 1,000 mls @ 100 mls/hr IV ASDIR [facility] Last Admin: 09/24/18 09:19 Dose: 100 mls/hr Pantoprazole Sodium (Protonix Iv) 40 mg IVPUSH BID [facility] Last Admin: 09/24/18 09:19 Dose: 40 mg CBC, BMP 09/24/18 06:24 09/24/18 06:24 Abnormal Lab Results 09/23/18 09/23/18 09/24/18 14:18 21:45 06:24 WBC 3.7 L Hgb 8.1 L 8.0 L 7.8 L Hct 26.8 L 26.7 L 25.6 L MCV 61.3 L 61.6 L 61.5 L MCH 18.5 L 18.4 L 18.7 L MCHC 30.2 L 29.9 L 30.5 L RDW 29.8 H 29.8 H 30.7 H BUN Creatinine AST ALT Alkaline Phosphatase 09/24/18 06:24 WBC Hgb Hct MCV MCH MCHC RDW BUN 5 L Creatinine 0.5 L AST 12 L ALT 11 L Alkaline Phosphatase 36 L Physical Exam S1 S2 irregular Lungs clear No pallor Abd-soft, tender LLQ, ND. BS+ no edema PLAN S/p prbc HCT better CT abd/pelvis noted GI on case Hematology eval - concerning lymph node-- consult appreciated monitor cbc protonix SCD for dvt prophylaxis monitor on tele echo will follow Problem List - Problems (1) GI bleed Code(s): K92.2 - GASTROINTESTINAL HEMORRHAGE, UNSPECIFIED (2) Anemia Code(s): D64.9 - ANEMIA, UNSPECIFIED Qualifiers: Anemia type: other cause Other causes of anemia: other cause, not classified Qualified Code(s): D64.89 - Other specified anemias (3) Hypothyroid Code(s): E03.9 - HYPOTHYROIDISM, UNSPECIFIED
--- NOTE | 2018-09-24 13:01 | PN ---
Progress Note (short form) - Note Progress Note: EGD complete. Report left in procedural section of physical chart and will be scanned into [employer]
[2018-09-24 13:16] LABS: HGB SOLUBILITY Negative (Negative); Hgb C 0 % (0.0); Hgb F 0 % (0.0-2.0); Hgb S 0 % (0.0)
--- NOTE | 2018-09-25 07:28 | PN.GI ---
GI Progress Note Subjective: no new complaints - eating lunch - no dysphagia - Objective Vital Signs: Vital Signs Temperature 98.9 F 09/25/18 06:00 Pulse Rate 70 09/25/18 06:00 Respiratory Rate 18 09/25/18 06:00 Blood Pressure 97/64 09/25/18 06:00 O2 Sat by Pulse Oximetry (%) 98 09/24/18 21:00 Constitutional: Well Nourished, No Distress, Calm Eyes: Yes: WNL HENT: Yes: WNL Neck: Yes: WNL Cardiovascular: Yes: WNL, Regular Rate and Rhythm Respiratory: Yes: WNL, Regular, CTA Bilaterally Gastrointestinal Inspection: Yes: WNL ...Auscultate: Yes: Normoactive Bowel Sounds Musculoskeletal: Yes: WNL Extremities: Yes: WNL Edema: No Labs: CBC, BMP 09/24/18 06:24 09/24/18 06:24 INR, PTT INR 1.16 (0.83-1.09) H 09/22/18 05:36 Problem List - Problems (1) Esophageal stricture Assessment/Plan: diet as tolerated - soft trend h/h daily while hospitalized ppi daily plan for diagnostic colonoscopy on Thursday - clear liquid diet & bowel prep on Thursday Code(s): K22.2 - ESOPHAGEAL OBSTRUCTION (2) Anemia Code(s): D64.9 - ANEMIA, UNSPECIFIED Qualifiers: Anemia type: other cause Other causes of anemia: other cause, not classified Qualified Code(s): D64.89 - Other specified anemias
[2018-09-25 08:11] LABS: CALCIUM 8.5 mg/dL (8.5-10.1); CREATININE 0.5 mg/dL (0.55-1.3); POTASSIUM 4.1 mmol/L (3.5-5.1)
--- NOTE | 2018-09-25 09:27 | PN ---
Progress Note, Physician History of Present Illness: Patient is an 43 year old woman with PMH of menometrorrhagia, anemia (noted 5 years ago), hysterectomy (4 years ago) and penicillin allergy who presents to the ER complaining of abdominal pain associated with nausea and vomiting, tenesmus, watery and bloody diarrhea, weight loss>10 lbs and anorexia improving , admits to ibuprofen use frequent PVC on telemetry monitoring, PVC seen on 2018 ECG. She denies angina, dyspnea, palpitations, near or true syncope, orthopnea, PND, LE edema or change in exercise capacity. Echo shows normal LV fxn, holter pending for PVC burden, underwent EGD showing esophageal stricture w /o sequelae, plan for colonoscopy for anemia eval. - Current Medication List - Current Medication List Current Medications: Active Medications Bisacodyl (Dulcolax -) 20 mg PO ONCE ONE Stop: 09/26/18 13:01 Lactated Ringer's (Lactated Ringers Solution) 1,000 mls @ 100 mls/hr IV ASDIR [facility] Last Admin: 09/24/18 20:18 Dose: Not Given Pantoprazole Sodium (Protonix Packets For Oral Suspension -) 40 mg PO DAILY [facility] Polyethylene Glycol (Miralax (For Bowel Prep) -) 255 gm PO ONCE ONE Stop: 09/26/18 14:01 - Objective Vital Signs: Vital Signs Temperature 98.9 F 09/25/18 06:00 Pulse Rate 70 09/25/18 06:00 Respiratory Rate 18 09/25/18 06:00 Blood Pressure 97/64 09/25/18 06:00 O2 Sat by Pulse Oximetry (%) 98 09/24/18 21:00 Eyes: Yes: WNL, Conjunctiva Clear, EOM Intact HENT: Yes: WNL, Atraumatic, Normocephalic Neck: Yes: WNL, Supple, Trachea Midline Cardiovascular: Yes: WNL, Regular Rate and Rhythm Respiratory: Yes: WNL, Regular, CTA Bilaterally Gastrointestinal: Yes: WNL, Normal Bowel Sounds Genitourinary: Yes: WNL Musculoskeletal: Yes: WNL Extremities: Yes: WNL Edema: No Integumentary: Yes: WNL Neurological: Yes: WNL, Alert, Oriented ...Motor Strength: WNL Psychiatric: Yes: WNL Labs: CBC, BMP 09/25/18 06:05 INR, PTT INR 1.16 (0.83-1.09) H 09/22/18 05:36 Assessment/Plan ....Imaging EKG: Report Reviewed (Tele: NSR occ PVC) Problem List - Problems (1) Asymptomatic PVCs Code(s): I49.3 - VENTRICULAR PREMATURE DEPOLARIZATION (2) Anemia Code(s): D64.9 - ANEMIA, UNSPECIFIED Qualifiers: Anemia type: other cause Other causes of anemia: other cause, not classified Qualified Code(s): D64.89 - Other specified anemias (3) GI bleed Code(s): K92.2 - GASTROINTESTINAL HEMORRHAGE, UNSPECIFIED (4) Pre-procedural cardiovascular examination Code(s): Z01.810 - ENCOUNTER FOR PREPROCEDURAL CARDIOVASCULAR EXAMINATION Assessment/Plan 09/23/2018 Echo: Normal biventricular size and fxn, tr MR, TR, AR 1. Abd pain, hematochezia planned for colonoscopy 2. Asymptomatic PVC 3. Iron deficiency anemia ? thalassemia- await HbE 4. Esophageal stricture P: 1. Holter monitor to assess PVC burden, keep K>4.5, Mg>2.5, thyroid panel reviewed 2. PPI, avoid NSAIDs, monitor Hgb post transfusion, clear liquid diet 3. Plans for colonoscopy pending above study results
[2018-09-25] MEDS: PANTOPRAZOLE SOD 40 MG SUSPENSION PACKET PO SCH (09:53)
[2018-09-25 09:55] LABS: BASO % 3.2 % (0-2.0); EOS % 7.1 % (0-4.5); HEMOGLOBIN 7.9 GM/dL (10.7-15.3); LYMPH % 34.6 % (8-40); MCHC 29.3 g/dl (32.0-36.0); MEAN CELL VOLUME 62.6 fl (80-96); MEAN PLT VOLUME 10.1 fl (7.5-11.1); MONO % 13.4 % (3.8-10.2); NEUT % 41.7 % (42.8-82.8); RBC 4.31 M/mm3 (3.60-5.2); RDW 30.6 % (11.6-15.6); WHITE BLOOD COUNT 3.1 K/mm3 (4.0-10.0)
[2018-09-25 09:56] LABS: MCH 18.3 pg (25.7-33.7)
--- NOTE | 2018-09-25 12:59 | PN ---
Progress Note (short form) - Note Progress Note: pt seen/ examined awake/ comfortable no new issues denies cp/sob/abd pain/ palpitations Vital Signs Temp 98.1 F 09/25/18 10:00 Pulse 68 09/25/18 10:00 Resp 18 09/25/18 10:00 BP 108/68 09/25/18 10:00 Pulse Ox 96 09/25/18 09:00 Intake & Output 09/24/18 09/25/18 09/25/18 23:59 11:59 23:59 Intake Total 1999 Balance 1999 Weight 139 lb Intake: IV 1600 Lactated Ringers Solution 1400 1,000 ml @ 100 mls/hr IV ASDIR [facility] Rx#: [id number] Oral 400 Other: Voiding Method Toilet Toilet # Unmeasured Voids Void 1 Bowel Movement No Weight Measurement Method Standing Scale Active Medications Bisacodyl (Dulcolax -) 20 mg PO ONCE ONE Stop: 09/26/18 13:01 Lactated Ringer's (Lactated Ringers Solution) 1,000 mls @ 100 mls/hr IV ASDIR [facility] Last Admin: 09/24/18 20:18 Dose: Not Given Pantoprazole Sodium (Protonix Packets For Oral Suspension -) 40 mg PO DAILY [facility] Last Admin: 09/25/18 09:53 Dose: 40 mg Polyethylene Glycol (Miralax (For Bowel Prep) -) 255 gm PO ONCE ONE Stop: 09/26/18 14:01 CBC, BMP 09/25/18 06:05 09/25/18 06:05 echo- unremarkable holtor-- sinus/ pvcs Physical Exam S1 S2 irregular Lungs clear No pallor Abd-soft, tender LLQ, ND. BS+ no edema PLAN S/p prbc HCT better CT abd/pelvis noted GI on case Hematology eval - concerning lymph node-- consult appreciated monitor cbc protonix SCD for dvt prophylaxis monitor on tele stable anticipate endo tomorrow Problem List - Problems (1) GI bleed Code(s): K92.2 - GASTROINTESTINAL HEMORRHAGE, UNSPECIFIED (2) Anemia Code(s): D64.9 - ANEMIA, UNSPECIFIED Qualifiers: Anemia type: other cause Other causes of anemia: other cause, not classified Qualified Code(s): D64.89 - Other specified anemias (3) Hypothyroid Code(s): E03.9 - HYPOTHYROIDISM, UNSPECIFIED
[2018-09-25 13:16] LABS: ANISOCYTOSIS 2+; MACROCYTOSIS 0; PLATELET ESTIMATE NORMAL
[2018-09-25 13:34] LABS: PLATELET COUNT 185 K/MM3 (134-434)
[2018-09-25] MEDS: LACTATED RINGERS SOLUTION 1,000 ML IV SCH (21:24)
--- NOTE | 2018-09-26 07:35 | PN.GI ---
GI Progress Note Subjective: NO NEW COMPLAINTS - Objective Vital Signs: Vital Signs Temperature 98.5 F 09/26/18 05:00 Pulse Rate 65 09/26/18 05:00 Respiratory Rate 20 09/26/18 05:00 Blood Pressure 100/65 09/26/18 05:00 O2 Sat by Pulse Oximetry (%) 97 09/25/18 20:52 Constitutional: Well Nourished, No Distress, Calm Eyes: Yes: WNL HENT: Yes: WNL Neck: Yes: WNL Cardiovascular: Yes: WNL, Regular Rate and Rhythm Respiratory: Yes: WNL, Regular, CTA Bilaterally Gastrointestinal Inspection: Yes: WNL ...Auscultate: Yes: Normoactive Bowel Sounds Extremities: Yes: WNL Edema: No Labs: CBC, BMP 09/25/18 06:05 09/25/18 06:05 INR, PTT INR 1.16 (0.83-1.09) H 09/22/18 05:36 Problem List - Problems (1) Esophageal stricture Assessment/Plan: trend h/h daily while hospitalized ppi daily plan for diagnostic colonoscopy on Thursday - clear liquid diet & bowel prep on today; npo midnight Code(s): K22.2 - ESOPHAGEAL OBSTRUCTION (2) Anemia Code(s): D64.9 - ANEMIA, UNSPECIFIED Qualifiers: Anemia type: other cause Other causes of anemia: other cause, not classified Qualified Code(s): D64.89 - Other specified anemias
--- NOTE | 2018-09-26 08:52 | PN ---
Progress Note, Physician History of Present Illness: Patient is an 43 year old woman with PMH of menometrorrhagia, anemia (noted 5 years ago), hysterectomy (4 years ago) and penicillin allergy who presents to the ER complaining of abdominal pain associated with nausea and vomiting, tenesmus, watery and bloody diarrhea, weight loss>10 lbs and anorexia improving , admits to ibuprofen use frequent PVC on telemetry monitoring, PVC seen on 2018 ECG. She denies angina, dyspnea, palpitations, near or true syncope, orthopnea, PND, LE edema or change in exercise capacity. Echo shows normal LV fxn, holter pending for PVC burden, underwent EGD showing esophageal stricture w /o sequelae, plan for colonoscopy for anemia eval. - Current Medication List - Current Medication List Current Medications: Active Medications Bisacodyl (Dulcolax -) 20 mg PO ONCE ONE Stop: 09/26/18 13:01 Lactated Ringer's (Lactated Ringers Solution) 1,000 mls @ 100 mls/hr IV ASDIR [facility] Last Admin: 09/24/18 20:18 Dose: Not Given Pantoprazole Sodium (Protonix Packets For Oral Suspension -) 40 mg PO DAILY [facility] Last Admin: 09/25/18 09:53 Dose: 40 mg Polyethylene Glycol (Miralax (For Bowel Prep) -) 255 gm PO ONCE ONE Stop: 09/26/18 14:01 - Objective Vital Signs: Vital Signs Temperature 98.5 F 09/26/18 05:00 Pulse Rate 65 09/26/18 05:00 Respiratory Rate 20 09/26/18 05:00 Blood Pressure 100/65 09/26/18 05:00 O2 Sat by Pulse Oximetry (%) 99 09/26/18 07:52 Eyes: Yes: WNL, Conjunctiva Clear, EOM Intact HENT: Yes: WNL, Atraumatic, Normocephalic Neck: Yes: WNL, Supple, Trachea Midline Cardiovascular: Yes: WNL, Regular Rate and Rhythm Respiratory: Yes: WNL, Regular, CTA Bilaterally Gastrointestinal: Yes: WNL, Normal Bowel Sounds Genitourinary: Yes: WNL Musculoskeletal: Yes: WNL Extremities: Yes: WNL Edema: No Integumentary: Yes: WNL Neurological: Yes: WNL, Alert, Oriented ...Motor Strength: WNL Psychiatric: Yes: WNL Labs: CBC, BMP 09/25/18 06:05 09/25/18 06:05 INR, PTT INR 1.16 (0.83-1.09) H 09/22/18 05:36 Assessment/Plan ....Imaging EKG: Report Reviewed (Tele: NSR occ PVC) Problem List - Problems (1) Asymptomatic PVCs Code(s): I49.3 - VENTRICULAR PREMATURE DEPOLARIZATION (2) Anemia Code(s): D64.9 - ANEMIA, UNSPECIFIED Qualifiers: Anemia type: other cause Other causes of anemia: other cause, not classified Qualified Code(s): D64.89 - Other specified anemias (3) GI bleed Code(s): K92.2 - GASTROINTESTINAL HEMORRHAGE, UNSPECIFIED (4) Pre-procedural cardiovascular examination Code(s): Z01.810 - ENCOUNTER FOR PREPROCEDURAL CARDIOVASCULAR EXAMINATION Assessment/Plan 09/23/2018 Echo: Normal biventricular size and fxn, tr MR, TR, AR 1. Abd pain, hematochezia planned for colonoscopy 2. Asymptomatic PVC 3. Iron deficiency anemia ? thalassemia- await HbE 4. Esophageal stricture P: 1. Holter monitor to assess PVC burden, keep K>4.5, Mg>2.5, thyroid panel reviewed 2. PPI, avoid NSAIDs, monitor Hgb post transfusion, clear liquid diet 3. Plans for colonoscopy pending above study results coverage for dr. Powers
[2018-09-26] MEDS ORDERED: PT OWN MED DRAWER 7, Y5N ONE (09:12)
--- NOTE | 2018-09-26 09:14 | HOL ---
Hook-up date: 2018-09-23 14:11:00 Duration: 24:00:00 Test Indications: PVC, EVALUATE FREQUENCY Medications: [id number] QRS complexes Ventricular ectopics which represent 18 % of total QRS comp. 2 Supraventricular ectopics which represent <1 % of total QRS comp. * Paced QRS complexs which represent % of total QRS comp. * % of Time Classified as Noise VENTRICULAR ECTOPY Isolated 3000 Bigeminal Cycles 12 Couplets 0 Runs 0 Beats in Runs * Beats LONGEST at * BPM at :: -- * Beats FASTEST at * BPM at :: -- SUPRAVENTRICULAR ECTOPY 2 Isolated 0 Couplets 0 Runs 0 Beats in Runs * Beats LONGEST at * BPM at :: -- * Beats FASTEST at * BPM at :: -- HEART RATES 48 MIN at 03:00:10 2018-09-24 77 AVG 141 MAX at 10:15:00 2018-09-24 LONGEST RR 1.576 secs at 03:35:09 2018-09-24 SCANNED BY: LEODAN 09/25/18 Normal sinus rhythm frequent vpcs representing 18 % of all qrs complexes Confirmed by KEVIN GARCIA, SUZAN ([id number]) on 09/26/2018 9:13:46 AM Referred By: Michele LUGO Overread By: SUZAN BROWN MD
[2018-09-26] MEDS: PANTOPRAZOLE SOD 40 MG SUSPENSION PACKET PO SCH (09:39)
[2018-09-26] MEDS ORDERED: BISACODYL 5 MG TABLET.DR (FP) PO ONE (13:00)
--- NOTE | 2018-09-26 13:27 | PN ---
Progress Note (short form) - Note Progress Note: pt seen/ examined chart reviewed comfortable no complains Vital Signs Temp 98.4 F 09/26/18 09:00 Pulse 84 09/26/18 09:00 Resp 18 09/26/18 09:00 BP 98/61 09/26/18 09:00 Pulse Ox 99 09/26/18 07:52 Intake & Output 09/25/18 09/26/18 09/26/18 23:59 11:59 23:59 Intake Total 2605 1150 Balance 2605 1150 Weight 138 lb 3.2 oz Intake: IV 1245 900 Lactated Ringers Solution 475 1,000 ml @ 100 mls/hr IV ASDIR [facility] Rx#: [id number] Lactated Ringers Solution 770 900 1,000 ml @ 100 mls/hr IV ASDIR [facility] Rx#: [id number] Oral 1360 250 Other: Voiding Method Toilet Toilet # Unmeasured Voids Void 1 2 Bowel Movement No No Weight Measurement Method Standing Scale Active Medications Lactated Ringer's (Lactated Ringers Solution) 1,000 mls @ 100 mls/hr IV ASDIR [facility] Last Admin: 09/24/18 20:18 Dose: Not Given Pantoprazole Sodium (Protonix Packets For Oral Suspension -) 40 mg PO DAILY [facility] Last Admin: 09/26/18 09:39 Dose: 40 mg Polyethylene Glycol (Miralax (For Bowel Prep) -) 255 gm PO ONCE ONE Stop: 09/26/18 14:01 CBC, BMP 09/25/18 06:05 09/25/18 06:05 Physical Exam S1 S2 irregular Lungs clear No pallor Abd-soft, tender LLQ, ND. BS+ no edema PLAN S/p prbc HCT better CT abd/pelvis noted GI on case Hematology eval - concerning lymph node-- consult appreciated monitor cbc protonix SCD for dvt prophylaxis monitor on tele stable anticipate endo tomorrow-- colonoscopy will follow Problem List - Problems (1) GI bleed Code(s): K92.2 - GASTROINTESTINAL HEMORRHAGE, UNSPECIFIED (2) Anemia Code(s): D64.9 - ANEMIA, UNSPECIFIED Qualifiers: Anemia type: other cause Other causes of anemia: other cause, not classified Qualified Code(s): D64.89 - Other specified anemias (3) Hypothyroid Code(s): E03.9 - HYPOTHYROIDISM, UNSPECIFIED
[2018-09-26] MEDS ORDERED: POLYETHYLENE GLYCOL 3350 255 GM BTL PO ONE (14:00)
[2018-09-26] MEDS ORDERED: ACETAMINOPHEN 325 MG TABLET (FP) PO PRN (17:36)
[2018-09-26] MEDS: LACTATED RINGERS SOLUTION 1,000 ML IV SCH (21:24)
[2018-09-27] MEDS: PANTOPRAZOLE SOD 40 MG SUSPENSION PACKET PO SCH (09:01)
--- NOTE | 2018-09-27 10:49 | PN ---
Progress Note, Physician History of Present Illness: Patient is an 43 year old woman with PMH of menometrorrhagia, anemia (noted 5 years ago), hysterectomy (4 years ago) and penicillin allergy who presents to the ER complaining of abdominal pain associated with nausea and vomiting, tenesmus, watery and bloody diarrhea, weight loss>10 lbs and anorexia improving , admits to ibuprofen use frequent PVC on telemetry monitoring, PVC seen on 2018 ECG. She denies angina, dyspnea, palpitations, near or true syncope, orthopnea, PND, LE edema or change in exercise capacity. Echo shows normal LV fxn, holter pending for PVC burden, underwent EGD showing esophageal stricture w /o sequelae, underwent colonoscopy for anemia eval. - Current Medication List Current Medications: Active Medications Acetaminophen (Tylenol -) 650 mg PO Q6H PRN PRN Reason: FEVER Lactated Ringer's (Lactated Ringers Solution) 1,000 mls @ 100 mls/hr IV ASDIR [facility] Last Admin: 09/26/18 21:24 Dose: 100 mls/hr Pantoprazole Sodium (Protonix Packets For Oral Suspension -) 40 mg PO DAILY [facility] Last Admin: 09/27/18 09:01 Dose: 40 mg - Objective Vital Signs: Vital Signs Temperature 98.9 F 09/27/18 09:19 Pulse Rate 72 09/27/18 09:19 Respiratory Rate 18 09/27/18 09:19 Blood Pressure 108/70 09/27/18 09:19 O2 Sat by Pulse Oximetry (%) 97 09/27/18 09:00 Labs: CBC, BMP 09/25/18 06:05 09/25/18 06:05 INR, PTT INR 1.16 (0.83-1.09) H 09/22/18 05:36 Problem List - Problems (1) Asymptomatic PVCs Code(s): I49.3 - VENTRICULAR PREMATURE DEPOLARIZATION (2) Anemia Code(s): D64.9 - ANEMIA, UNSPECIFIED Qualifiers: Anemia type: other cause Other causes of anemia: other cause, not classified Qualified Code(s): D64.89 - Other specified anemias (3) GI bleed Code(s): K92.2 - GASTROINTESTINAL HEMORRHAGE, UNSPECIFIED (4) Pre-procedural cardiovascular examination Code(s): Z01.810 - ENCOUNTER FOR PREPROCEDURAL CARDIOVASCULAR EXAMINATION Assessment/Plan 09/23/2018 Echo: Normal biventricular size and fxn, tr MR, TR, AR Holter: NSR, frequent PVC 18% of beats 1. Abd pain, hematochezia planned for colonoscopy 2. Asymptomatic PVC 3. Iron deficiency anemia ? thalassemia- await HbE 4. Esophageal stricture P: 1. Keep K>4.5, Mg>2.5, thyroid panel reviewed 2. PPI, avoid NSAIDs, monitor Hgb post transfusion, clear liquid diet 3. Plans for colonoscopy
--- NOTE | 2018-09-27 12:04 | PN ---
Progress Note (short form) - Note Progress Note: Colonoscopy today will follow Vital Signs Temp 98.6 F 09/27/18 11:50 Pulse 81 09/27/18 11:50 Resp 18 09/27/18 11:50 BP 103/58 L 09/27/18 11:50 Pulse Ox 99 09/27/18 11:50 Intake & Output 09/26/18 09/27/18 09/27/18 23:59 11:59 23:59 Intake Total 2500 600 Balance 2500 600 Weight 139 lb 2 oz Intake: IV 1600 600 Lactated Ringers Solution 1600 600 1,000 ml @ 100 mls/hr IV ASDIR [facility] Rx#: [id number] Oral 900 0 Other: Voiding Method Toilet Toilet # Unmeasured Voids Void 2 2 Bowel Movement No Weight Measurement Method Standing Scale Active Medications Acetaminophen (Tylenol -) 650 mg PO Q6H PRN PRN Reason: FEVER Lactated Ringer's (Lactated Ringers Solution) 1,000 mls @ 100 mls/hr IV ASDIR [facility] Last Admin: 09/26/18 21:24 Dose: 100 mls/hr Pantoprazole Sodium (Protonix Packets For Oral Suspension -) 40 mg PO DAILY [facility] Last Admin: 09/27/18 09:01 Dose: 40 mg CBC, BMP 09/25/18 06:05 09/25/18 06:05
--- NOTE | 2018-09-27 13:12 | PN ---
Progress Note (short form) - Note Progress Note: pt seen/ examined came back form colonoscopy. awake/ comfortable Vital Signs Temp 98.2 F 09/27/18 12:49 Pulse 78 09/27/18 12:49 Resp 18 09/27/18 12:49 BP 118/64 09/27/18 12:49 Pulse Ox 98 09/27/18 12:49 Intake & Output 09/26/18 09/27/18 09/27/18 23:59 11:59 23:59 Intake Total 2500 600 Balance 2500 600 Weight 139 lb 2 oz Intake: IV 1600 600 Lactated Ringers Solution 1600 600 1,000 ml @ 100 mls/hr IV ASDIR [facility] Rx#: [id number] Oral 900 0 Other: Voiding Method Toilet Toilet # Unmeasured Voids Void 2 2 Bowel Movement No Weight Measurement Method Standing Scale Active Medications Acetaminophen (Tylenol -) 650 mg PO Q6H PRN PRN Reason: FEVER Lactated Ringer's (Lactated Ringers Solution) 1,000 mls @ 100 mls/hr IV ASDIR [facility] Last Admin: 09/26/18 21:24 Dose: 100 mls/hr Pantoprazole Sodium (Protonix Packets For Oral Suspension -) 40 mg PO DAILY [facility] Last Admin: 09/27/18 09:01 Dose: 40 mg CBC, BMP 09/25/18 06:05 09/25/18 06:05 Physical Exam S1 S2 regular Lungs clear No pallor Abd-soft, no edema PLAN Stable f/u official colonoscopy report start on diet MRCP pending Hematology to follow will follow
--- NOTE | 2018-09-28 09:26 | PATH ---
Surgical Pathology Report Patient Name: ANABELLE TURK [facility]. Rec. #: [id number] /Age/Gender: 1975 (Age: 43) / F Account: [id number] Location: 4 W TELEMETRY U Taken: 09/24/2018 Received: 09/27/2018 Reported: 09/28/2018 Physicians: Ray Puckett D.O. Specimen(s) Received A: BX AMPULLA B: BX DUODENUM Clinical History Anemia, GI bleed Postoperative diagnosis: Esophageal stricture Final Diagnosis A. AMPULLA, BIOPSY: DUODENAL MUCOSA WITH NO PATHOLOGIC CHANGES. NO HISTOLOGIC EVIDENCE OF GLUTEN SENSITIVE ENTEROPATHY (CELIAC SPRUE) IDENTIFIED. NO ADENOMATOUS CHANGES IDENTIFIED. B. DUODENUM BIOPSY: DUODENAL MUCOSA WITH FOCAL NONSPECIFIC ACUTE INFLAMMATION, REACTIVE LYMPHOID AGGREGATE WITHIN LAMINA PROPRIA. NO HISTOLOGIC EVIDENCE OF GLUTEN SENSITIVE ENTEROPATHY (CELIAC SPRUE) IDENTIFIED. NO ADENOMATOUS CHANGES IDENTIFIED. Electronically Signed Charlie Todd M.D. Gross Description A. Received in formalin, labeled "biopsy ampulla" are 2 ulloa, irregular portions of soft tissue measuring 0.1 and 0.3 cm. in greatest dimension. The specimens are submitted in toto in one cassette. B. Received in formalin, labeled "biopsy duodenum" are 6 ulloa, irregular portions of soft tissue ranging from 0.2-0.5 cm. in greatest dimension. The specimens are submitted in toto in one cassette. DL/09/27/2018 saudi09/27/2018
[2018-09-28] MEDS: PANTOPRAZOLE SOD 40 MG SUSPENSION PACKET PO SCH (11:21)
--- NOTE | 2018-09-28 11:49 | DS ---
Physical Examination Vital Signs: Vital Signs Temperature 98.1 F 09/28/18 06:00 Pulse Rate 87 09/28/18 06:00 Respiratory Rate 20 09/28/18 06:00 Blood Pressure 108/74 09/28/18 06:00 O2 Sat by Pulse Oximetry (%) 98 09/27/18 12:49 Labs: CBC, BMP 09/25/18 06:05 09/25/18 06:05 Discharge Summary Reason For Visit: ANEMIA Current Active Problems Anemia (Acute) Asymptomatic PVCs (Acute) Esophageal stricture (Acute) GI bleed (Acute) Pre-procedural cardiovascular examination (Acute) Condition: Stable - Instructions - Home Medications Comprehensive Discharge Medication List: Ambulatory Orders NK [No Known Home Medication] 05/05/18
[2018-09-28 12:02] VITALS: BP 104/60; PULSE 77; TEMP 98.7
--- NOTE | 2018-09-28 12:27 | PN ---
Progress Note, Physician Chief Complaint: Events noted Not in distress History of Present Illness: Patient was seen and examined. Awake and alert. Chart was reviewed Denies chest pain, SOB or palpitations - Current Medication List Current Medications: Active Medications Acetaminophen (Tylenol -) 650 mg PO Q6H PRN PRN Reason: FEVER Pantoprazole Sodium (Protonix Packets For Oral Suspension -) 40 mg PO DAILY NEREIDA Last Admin: 09/28/18 11:21 Dose: Not Given - Objective Vital Signs: Vital Signs Temperature 98.7 F 09/28/18 10:00 Pulse Rate 77 09/28/18 10:00 Respiratory Rate 18 09/28/18 10:00 Blood Pressure 104/60 09/28/18 10:00 O2 Sat by Pulse Oximetry (%) 98 09/28/18 09:00 HENT: Yes: Atraumatic Neck: Yes: Supple Cardiovascular: Yes: Regular Rate and Rhythm, S1, S2 Respiratory: Yes: CTA Bilaterally Gastrointestinal: Yes: Normal Bowel Sounds, Soft, Tenderness Edema: No Additional Findings/Remarks: - Review of Systems Constitutional: denies: Chills, Fever Cardiovascular: denies: Chest Pain, Palpitations, Shortness of Breath Respiratory: denies: Cough, Hemoptysis, Orthopnea, PND, SOB, SOB on Exertion Gastrointestinal: denies: Abdominal Pain, Constipation, Diarrhea, Melena, Nausea , Rectal Bleeding, Vomiting Genitourinary: denies: Dysuria, Hematuria Musculoskeletal: denies: Back Pain, Joint Pain Neurological: denies: Dizziness, Syncope. denies: Confusion, Headache, Numbness , Seizure, Unsteady Gait Problem List - Problems (1) Anemia Code(s): D64.9 - ANEMIA, UNSPECIFIED Qualifiers: Anemia type: other cause Other causes of anemia: other cause, not classified Qualified Code(s): D64.89 - Other specified anemias (2) Asymptomatic PVCs Code(s): I49.3 - VENTRICULAR PREMATURE DEPOLARIZATION (3) Esophageal stricture Code(s): K22.2 - ESOPHAGEAL OBSTRUCTION Assessment/Plan 1. Abdominal pain and hematochezia s/p EGD and colonoscopy 2. Asymptomatic PVC 3. Iron deficiency anemia ? thalassemia 4. Esophageal stricture PLAN: 1. Keep K>4.5, Mg>2.5 2. PPI, avoid NSAIDs, monitor Hgb post transfusion and clear liquid diet 3. Discharge planning Triston Reddy MD
== END 2018-09-28 12:51 | disposition home or self-care (01) | DRG 254 ==
LOC: JER 12:39 → JERBED 09-22 01:18 → J6S 09-22 07:30 → J4W 09-23 15:03
PROVIDERS: ADMIT Internal Medicine; ATTEND Internal Medicine
PROC: 30233N1 Transfusion of Nonautologous Red Blood Cells into Peripheral Vein, Percutaneous Approach (ICD-10-PCS; 2018-09-21)
PROC: 0DJD8ZZ Inspection of Lower Intestinal Tract, Via Natural or Artificial Opening Endoscopic (ICD-10-PCS; principal; 2018-09-27 11:00)
DX: K64.8 Other hemorrhoids (principal); K21.9 Gastro-esophageal reflux disease without esophagitis; K92.2 Gastrointestinal hemorrhage, unspecified; E03.9 Hypothyroidism, unspecified; R59.1 Generalized enlarged lymph nodes; N92.0 Excessive and frequent menstruation with regular cycle; R11.2 Nausea with vomiting, unspecified; D50.9 Iron deficiency anemia, unspecified; R63.0 Anorexia; Z68.25 Body mass index [BMI] 25.0-25.9, adult; I49.3 Ventricular premature depolarization; K22.2 Esophageal obstruction; R16.1 Splenomegaly, not elsewhere classified; Z88.0 Allergy status to penicillin
CPT/HCPCS: 36415; 36430; 36511; 72050-TC-FY; 74177-TC; 74181-TC; 80048; 80053; 81003; 82272; 82308; 82550; 82728; 83021; 83540; 83550; 83690; 83735; 84100; 84439; 84443; 84484; 84703; 85025; 85027; 85044; 85610; 85651; 85660; 85730; 86140; 86870; 86902; 86922; 87040; 87086; 88305-TC; 93005; 93010; 93225; 93226; 93306-TC; 99285-25; P9038; P9058

== ENCOUNTER → 2018-11-03 | Emergency (ER) | payer OTHER | LOC: JER 14:41 ==